=== PATIENT | male | born 1965 | race Caucasian/White ===

== ENCOUNTER → 2019-10-09 13:23 | Outpatient (CLI) | payer BC, SELFPAY ==
--- NOTE | ~2019-10-09 | CT_ITS ---
EXAMINATION: CT pelvis wo con EXAM DATE: 10/09/2019 13:37 INDICATION: Left lower quadrant pain. TECHNIQUE: Spiral CT pelvis wo con was performed without contrast. Axial, coronal and sagittal imag es were reviewed. The dose-length product (DLP) for this examination was 473.11 mGy-cm. The exposur e was tailored according to patient size (auto mA exposure control), and iterative reconstruction ( IR) was used as additional dose reduction technique. There is no prior study for comparison. FINDINGS: Normal appendix. No inguinal hernias. Prostate normal in size. Bladder is unremarkable. No pelvic lymphadenopathy. L5 pars are intact. There is mild lower lumbar disc disease. IMPRESSION: Normal CT pelvis exam. Reviewed, dictated and finalized at location B. ICE WRITER ADVISOR IMPRESSION: Normal CT pelvis exam.
== END ==
PROVIDERS: PCP Family Medicine; Visit Provider Surgery
DX: R10.32 Left lower quadrant pain (principal)
CPT/HCPCS: 72192

== ENCOUNTER → 2021-04-10 14:20 | Outpatient (CLI) | payer BC, SELFPAY ==
--- NOTE | ~2021-04-10 | XR_ITS ---
XR lumbar spine 6V w bending DATE: 04/10/2021 14:46 INDICATION: Low back pain, right sciatica TECHNIQUE: Standing AP, lateral neutral, flexion and extension views. Coned lateral lumbosacral view. Bilateral oblique views. COMPARISON: None FINDINGS: There is mild dextro scoliosis of the thoracolumbar spine. No fracture, bone destruction, spondylolysis or spondylolisthesis is detected. The lumbar and lumbosa cral interspaces are relatively preserved. No instability on flexion or extension is detected. The sacroiliac joints are normal. Prominent amount of fecal material in the colon. IMPRESSION: Mild dextroscoliosis Reviewed, dictated and finalized at location B. IMPRESSION: Mild dextroscoliosis
== END ==
PROVIDERS: PCP Family Medicine; Visit Provider Nurse Practitioner Family
DX: M54.41 Lumbago with sciatica, right side (principal)
CPT/HCPCS: 72114

== ENCOUNTER → 2021-05-10 15:06 | Outpatient (CLI) | payer BC, SELFPAY ==
--- NOTE | ~2021-05-10 | MR_ITS ---
EXAMINATION: MR lumbar spine wo con DATE: 05/10/2021 16:14 INDICATION: Lumbago and sciatica, right-sided. TECHNIQUE: Magnetic resonance imaging (MRI) of the lumbar spine was performed without intravenous con trast. Sequences included sagittal T2-weighted FSE, sagittal T2-weighted FS FSE, sagittal T1-weighted FSE, and axial T2-weighted FSE. COMPARISON: Lumbar spine radiograph 04/10/2021 FINDINGS: There is 3 degrees levocurvature of lumbar spine. Vertebral body heights are normal. There is mildly decreased disc height at L3-L4, L4-L5, and L5-S1. The distal spinal cord signal intensity i s normal. The conus medullaris is at L1. The following disc levels are specifically discussed: L1-L2: The disc does not extend beyond the endplate margin. There is mild bilateral facet joint osteo arthritis. There is no neural foraminal stenosis. There is no central canal stenosis. L2-L3: There is a left subarticular and foraminal zone extrusion. There is moderate bilateral facet j oint osteoarthritis. There is mild right and moderate left neural foraminal stenosis. There is mild c entral canal stenosis. L3-L4: The disc is bulging and has an annular fissure. There is severe bilateral facet joint osteoart hritis. There is mild bilateral neural foraminal stenosis. There is mild central canal stenosis. L4-L5: The disc is bulging and has an annular fissure. There is severe bilateral facet joint osteoart hritis. There is mild bilateral neural foraminal stenosis. There is mild central canal stenosis. L5-S1: The disc is bulging and has an annular fissure. There is mild bilateral facet joint osteoarthr itis. There is mild bilateral neural foraminal stenosis. There is mild central canal stenosis. IMPRESSION: 1. Moderate lumbar spondylosis. Reviewed, dictated and finalized at location A.
== END ==
PROVIDERS: PCP Family Medicine; Visit Provider Nurse Practitioner Family
DX: M47.817 Spondylosis without myelopathy or radiculopathy, lumbosacral region (principal); M48.07 Spinal stenosis, lumbosacral region
CPT/HCPCS: 72148

== ENCOUNTER 2021-10-19 00:19 | Day surgery (SDC) | payer BC, SELFPAY ==
[2021-10-09 09:40] VITALS: BMI 24.3
--- NOTE | 2021-10-18 13:15 | PM.HPGS ---
History of Present Illness History of Present Illness Consent: Risks, benefits, and alternatives have been discussed and questions answered. Patient agrees to proceed with procedure. Chief complaint: hx of colon polyps Narrative: Brett Mcghee is a 55 year old male referred for colon cancer screening. He had 2 adenomatous polyps removed about 5 years ago Review of Systems Review of Systems: All systems reviewed & are unremarkable except as noted in HPI and below PMFSH Past Medical History Medical History Abnormal MRI, lumbar spine Back strain BMI 25.0-25.9,adult Colon polyp Dislocated elbow Surgical History Surgical History H/O inguinal hernia repair History of vasectomy Family History Family History Grandparent Family history of premature coronary heart disease Hypertension Family history of malignant neoplasm Diabetes mellitus Family history of heart disease in male family member before age 55 Family history of cardiovascular disease Family history of coronary artery disease Father Hypertension Family history of coronary artery disease Family history of heart disease in male family member before age 55 Family history of cardiovascular disease Mother No problems noted. Sibling No problems noted. 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 Gender identity (if verbalized by the patient): Male Spiritual care concerns: No Meds Home Medications and Allergies Home Medications Medication Instructions Recorded Confirmed Type zolpidem 5 mg tablet 5 mg PO .q hs #30 tablet 08/01/21 10/09/21 Rx Adults Multivitamin 1 cap PO DAILY 10/09/21 10/09/21 History Allergies Allergy/AdvReac Type Severity Reaction Status Date / Time No Known Allergies Allergy Verified 10/19/21 09:13 Exam Const: General: alert Orientation/consciousness: patient oriented x3 Resp: Auscultation: clear to auscultation bilaterally Cardio: Rhythm: regular rhythm GI: GI Palp: Yes Soft to palpation and No Tenderness to palpation present (GI) Neuro: General: patient oriented x3 Assessment and Plan Assessment and plan (1) Colon cancer screening: Code(s): Z12.11 - Encounter for screening for malignant neoplasm of colon Status: Acute Assessment and Plan: Colonoscopy with possible biopsy or polypectomy or cautery or injection of substances.
[2021-10-19 09:14] VITALS: BP 126/76; PULSE 50; RESP 16; TEMP 36.8; O2SAT 100
[2021-10-19] MEDS: LACTATED RINGERS 1,000 ML 150 ML IV CONT (09:33)
--- NOTE | 2021-10-19 10:24 | WPDANESEPPF ---
Anes - Initial Pre Proc Eval Procedure: Operation Date: 10/19/21 10:30 Proposed Procedures p Screening Colonoscopy - Timmy Naik MD Date/Time: 10/19/21 10:24 Surgeon: Timmy Naik MD Pre Op Diagnosis: hx of colon polyps Patient Data Age: 55 Gender: M Height: 1.78 m Weight: 74.6 kg Last Vital Signs Temp 98.2 F 10/19/21 09:14 Pulse 50 L 10/19/21 09:14 Resp 16 10/19/21 09:14 BP 126/76 10/19/21 09:14 Pulse Ox 100 10/19/21 09:14 Allergies Allergy/AdvReac Type Severity Reaction Status Date / Time No Known Allergies Allergy Verified 10/19/21 09:13 Home Medications Medication Instructions Recorded Confirmed Type zolpidem 5 mg tablet 5 mg PO .q hs #30 tablet 08/01/21 10/09/21 Rx Adults Multivitamin 1 cap PO DAILY 10/09/21 10/09/21 History Patient hx anesthesia problems: none Family hx anesthesia problems: none Results Review: All pre-operative results and documents have been reviewed as part of the pre-operative evaluation. [facility] Past Medical History Medical History Abnormal MRI, lumbar spine Back strain BMI 25.0-25.9,adult Colon polyp Dislocated elbow Surgical History Surgical History H/O inguinal hernia repair History of vasectomy Family History Family History Grandparent Family history of premature coronary heart disease Hypertension Family history of malignant neoplasm Diabetes mellitus Family history of heart disease in male family member before age 55 Family history of cardiovascular disease Family history of coronary artery disease Father Hypertension Family history of coronary artery disease Family history of heart disease in male family member before age 55 Family history of cardiovascular disease Mother No problems noted. Sibling No problems noted. 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 Informed Consent: The patient's anesthetic plan and its attendant risks and benefits were discussed with the patient/family/POA. Questions were solicited and answers provided to the satisfaction of the patient/family/POA.
[2021-10-19 10:52] VITALS: BP 104/65; PULSE 53; RESP 28; O2SAT 100
[2021-10-19 11:02] VITALS: BP 103/70; PULSE 52; RESP 17; O2SAT 100
[2021-10-19 11:12] VITALS: BP 115/76; PULSE 46; RESP 17; O2SAT 100
== END 2021-10-19 11:18 | disposition home or self-care (01) ==
PROVIDERS: PCP Family Medicine; Visit Provider Internal Medicine Gastroenterology
PROC: 0DJD8ZZ Inspection of Lower Intestinal Tract, Via Natural or Artificial Opening Endoscopic (ICD-10-PCS; CPT 45378; principal; 2021-10-19 10:30)
DX: Z12.11 Encounter for screening for malignant neoplasm of colon (principal); K63.5 Polyp of colon
CPT/HCPCS: 45385; 88305; J2704; J7120

== ENCOUNTER → 2022-01-11 12:21 | Outpatient (CLI) | payer BC, SELFPAY ==
--- NOTE | ~2022-01-11 | XR_ITS ---
XR thoracic spine 2V DATE: 01/11/2022 13:03 INDICATION: Thoracic back pain TECHNIQUE: AP, lateral, swimmer views COMPARISON: None FINDINGS: There is mild dextroscoliosis of the thoracic spine. No fracture or dislocation or bone destruction. The thoracic pedicles are intact. Vertebral heights a re preserved. Thoracic interspaces are preserved. There is minimal degenerative lipping of some of th e thoracic vertebrae. No paraspinal soft tissue thickening. IMPRESSION: Mild dextro scoliosis and minimal degenerative change Reviewed, dictated and finalized at location A.
--- NOTE | ~2022-01-11 | XR_ITS ---
XR_CERV2-3V_CR DATE: 01/11/2022 13:03 INDICATION: Neck pain TECHNIQUE: AP, open-mouth, lateral standing views COMPARISON: None FINDINGS: C1 and C2 are normally aligned and the odontoid process is intact. No fracture or dislocation or locked facet. No prevertebral soft tissue swelling. There is mild degenerative disease at C3-4. There is moderately prominent degenerative disc disease at C5-6 and moderate loss of height at C6-7 There is uncovertebral joint spurring at C5-6. IMPRESSION: Degenerative disc disease, most prominent at C5-6 Reviewed, dictated and finalized at Location A. Reviewed, dictated and finalized at location A.
--- NOTE | ~2022-01-11 | XR_ITS ---
EXAMINATION: XR chest 2V DATE: 01/11/2022 13:03 INDICATION: Shortness of breath. TECHNIQUE: Frontal and lateral views of the chest were obtained on 3 radiographs. COMPARISON: CT abdomen and pelvis 08/11/2018 FINDINGS: The chest demonstrates clear lungs without pneumonia, pleural effusion, or pneumothorax. Th e heart size is normal. IMPRESSION: 1. No acute cardiopulmonary disease. Reviewed, dictated and finalized at location A.
== END ==
PROVIDERS: PCP Family Medicine; Visit Provider Nurse Practitioner Family
DX: M54.6 Pain in thoracic spine (principal); R06.02 Shortness of breath; M50.322 Other cervical disc degeneration at C5-C6 level
CPT/HCPCS: 71046; 72040; 72070

== ENCOUNTER 2022-03-28 21:17 | Emergency (ER) | payer BC, SELFPAY ==
[2022-03-28 21:27] VITALS: BP 119/89; PULSE 50; RESP 18; TEMP 36.5; O2SAT 99
--- NOTE | 2022-03-28 22:01 | ED.GENADULT ---
HPI - General Adult General Chief complaint: Skin/Abscess/Foreign Body Stated complaint: laceration on top of head Time Seen by Provider: 03/28/22 21:52 History of Present Illness HPI narrative: Patient 56-year-old gentleman who presents the emergency department with chief complaint of head injury. Patient reports he was mowing the lawn and hit his head against a branch. Patient reports he is approximately 6 cm laceration to his scalp reports he is unsure of his last tetanus status. The patient states he was little dazed afterwards but is subsequently back to normal reports little bit of a mild headache. The patient denies being on blood thinners denies focal neurological deficit. Related Data Home Medications Medication Instructions Recorded Confirmed Adults Multivitamin 1 cap PO DAILY 10/09/21 01/11/22 Allergies Allergy/AdvReac Type Severity Reaction Status Date / Time No Known Allergies Allergy Verified 03/28/22 21:31 Review of Systems Review of Systems: A 10 system review of systems was completed on the patient and is negative except for what is stated in the HPI. Nursing and ancillary documentation was reviewed. [facility] Past Medical History Medical History Abnormal MRI, lumbar spine Back strain BMI 25.0-25.9,adult Colon polyp Dislocated elbow Surgical History Surgical History H/O inguinal hernia repair History of vasectomy Family History Family History Grandparent Family history of premature coronary heart disease Hypertension Family history of malignant neoplasm Diabetes mellitus Family history of heart disease in male family member before age 55 Family history of cardiovascular disease Family history of coronary artery disease Father Hypertension Family history of coronary artery disease Family history of heart disease in male family member before age 55 Family history of cardiovascular disease Mother No problems noted. Sibling No problems noted. 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 HEAD: Normocephalic, there is a sick centimeter laceration of the scalp. EYES: PERRLA and EOMI. ENT: Nares clear, no rhinorrhea or epistaxis. Mucous membranes moist. NECK: Supple. CHEST: Clear to auscultation. No respiratory distress. HEART: Regular rate and rhythm. No murmur heard. Normal peripheral pulses. ABDOMEN: Soft, nontender, nondistended, normal active bowel sounds. EXTREMITIES: Normal range of motion. No edema. SKIN: Warm, dry, no rash. NEURO: No focal deficits. Alert and oriented x3. PSYCH: Normal mood and affect. Course Vital Signs Vital signs: Vital Signs Temperature 36.5 C 03/28/22 21:27 Pulse Rate 50 L 03/28/22 21:27 Respiratory Rate 18 03/28/22 21:27 Blood Pressure 119/89 03/28/22 21:27 Pulse Oximetry 99 03/28/22 21:27 Oxygen Delivery Room Air 03/28/22 21:27 Temperature 36.5 C 03/28/22 21:27 Pulse Rate 68 03/28/22 22:36 Respiratory Rate 18 03/28/22 22:36 Blood Pressure 135/76 03/28/22 22:36 Pulse Oximetry 98 03/28/22 22:36 Oxygen Delivery Room Air 03/28/22 21:27 Procedures Laceration Laceration 1: Date: 03/28/22 Time: 22:02 Size (cm): 6 Description: linear Depth: simple, single layer Local Anesthetic: none ====== Skin Level ====== Skin layer closed with:
[2022-03-28] MEDS: TETANUS,DIPHTHERIA,AC PERTUSSIS ADULT (0.5 ML) BOOSTRIX IM (22:17)
[2022-03-28 22:36] VITALS: BP 135/76; PULSE 68; RESP 18; O2SAT 98
== END 2022-03-28 22:37 | disposition home or self-care (01) ==
PROVIDERS: Emergency Provider Emergency Medicine; PCP Family Medicine
DX: S01.01XA Laceration without foreign body of scalp, initial encounter (principal); Z23 Encounter for immunization; W22.8XXA Striking against or struck by other objects, initial encounter
CPT/HCPCS: 12002; 90471; 90715; 99282

== ENCOUNTER → 2022-05-15 11:08 | Outpatient (CLI) | payer BC, SELFPAY ==
--- NOTE | ~2022-05-15 | XR_ITS ---
EXAMINATION:XR cervical spine 4-5V DATE: 05/15/2022 11:37 INDICATION: Neck pain TECHNIQUE: AP, lateral in neutral, flexion, extension, and odontoid views of the cervical spine are p rovided. COMPARISON: 01/11/2022 FINDINGS: Bone alignment is normal. There is no laxity with flexion or extension. The odontoid is int act. No fracture is identified. There is unchanged moderate loss of intervertebral disc space height at C5-6. The vertebral body heights are maintained. Small degenerative osteophytes project from the a nterior endplates of multiple vertebral bodies. There is moderate facet and uncovertebral joint osteo arthritis at C5-6. Prevertebral soft tissues are normal. IMPRESSION: 1. Unchanged moderate cervical spondylosis at C5-6 without acute findings. No laxity. Reviewed, dictated and finalized at location B. IMPRESSION: 1. Unchanged moderate cervical spondylosis at C5-6 without acute findings. No l axity.
--- NOTE | ~2022-05-15 | XR_ITS ---
EXAM: XR lumbar spine min 4V DATE: 05/15/2022 11:37 HISTORY: Low back pain . COMPARISON: MR lumbar spine 05/10/2021 and x-ray lumbar spine 02/08/2021. FINDINGS: Mild lumbar scoliosis. 5 nonrib-bearing lumbar-type vertebral bodies. Pedicles intact. Norm al vertebral body alignment. No significant change in alignment in flexion or extension. Vertebral ivanna dy heights preserved. Mild disc space narrowing at L3-L4 through L5-S1. Lower lumbar facet hypertroph y and sclerosis. No fracture or dislocation. IMPRESSION: No dynamic listhesis. Mild degenerative disc disease and moderate facet arthropathy in th e lower lumbar spine. Reviewed, dictated and finalized at location K. IMPRESSION: No dynamic listhesis. Mild degenerative disc disease and moderate f acet arthropathy in the lower lumbar spine.
== END ==
PROVIDERS: PCP Family Medicine; Visit Provider Neurological Surgery
DX: M47.813 Spondylosis without myelopathy or radiculopathy, cervicothoracic region (principal); M47.817 Spondylosis without myelopathy or radiculopathy, lumbosacral region
CPT/HCPCS: 72050; 72110

== ENCOUNTER → 2022-07-19 08:40 | Outpatient (CLI) | payer BC, SELFPAY ==
--- NOTE | ~2022-07-19 | MR_ITS ---
EXAMINATION: MR lumbar spine wo con DATE: 07/19/2022 09:12 INDICATION: Low back pain. Lumbar radicular pain. TECHNIQUE: Magnetic resonance imaging (MRI) of the lumbar spine was performed without intravenous con trast. Sequences included sagittal T2-weighted FSE, sagittal T2-weighted FS FSE, sagittal T1-weighted FSE, and axial T2-weighted FSE. COMPARISON: Lumbar spine MRI 05/10/2021 FINDINGS: There is 4 degrees dextrocurvature of thoracolumbar spine. Vertebral body heights are jakob l. There is mildly decreased disc height at L3-L4, L4-L5, and L5-S1. The distal spinal cord signal in tensity is normal. The conus medullaris is at L1. The following disc levels are specifically discusse d: L1-L2: The disc does not extend beyond the endplate margin. There is mild bilateral facet joint osteo arthritis. There is no neural foraminal stenosis. There is no central canal stenosis. L2-L3: The disc is bulging and has an annular fissure. There is mild bilateral facet joint osteoarthr itis. There is mild bilateral neural foraminal stenosis. There is no central canal stenosis. L3-L4: The disc is bulging and has an annular fissure. There is severe bilateral facet joint osteoart hritis. There is mild bilateral neural foraminal stenosis. There is mild central canal stenosis. L4-L5: The disc is bulging and has an annular fissure. There is severe bilateral facet joint osteoart hritis. There is mild bilateral neural foraminal stenosis. There is mild central canal stenosis. L5-S1: The disc is bulging and has an annular fissure. There is mild bilateral facet joint osteoarthr itis. There is mild bilateral neural foraminal stenosis. There is mild central canal stenosis. IMPRESSION: 1. Mild lumbar spondylosis with interval improvement at L2-L3. Reviewed, dictated and finalized at location A. OR STORE MANAGER
== END ==
PROVIDERS: PCP Family Medicine; Visit Provider Nurse Practitioner Family
DX: M47.26 Other spondylosis with radiculopathy, lumbar region (principal)
CPT/HCPCS: 72148

== ENCOUNTER 2023-02-05 13:57 | Outpatient (RCR) | payer BC, SELFPAY ==
--- NOTE | 2023-02-05 15:08 | STOPEVDC ---
Assessment and note entered by Renee Langford, SUPERVISOR WEBBING Thank you for referring Brett Mcghee to [facility].? An evaluation has been completed. No further treatment is needed. Evaluation Information Assessment Status Evaluation Diagnosis Dysarthria Onset Reports he has noticed the issues in the past 6-8 months Subjective Information Patient reports that he recently has noticed in the past 6-8 months, he feels that he is having a hard time putting together sentences. He feels that he has imprecision in the /s/ sound and that he slurs words a lot, and that he has to work hard to get it out. He is expressing some concern about his own speech. Patient reports that when he listens to his own voicemail or voice memos, he does not feel like it sounds like himself. Patient stated that he has made his aware; she indicated at that time that she could perceive no difference. Reported Pain Level Pain Score 0: Self Report Assessment ST Clinical Summary SPEECH AND LANGUAGE EVALUATION This patieny was seen for a speech and language evaluation at his request as he reported that he feels that he is having occasional difficulty putting thoughts into words and he feels that his /s/ sound is not as precise as it used to be. He was presented with a variety of auditory comprehension, verbal expression, oral motor and speech tasks, and immediate memory tasks. All skills were judged to be within normal limits including production of the /s/ sound and therefore no further Speech Therapy is indicated. Plan of Care ST Services Indicated No
== END 2023-02-06 15:09 | disposition home or self-care (01) ==
LOC: ANHST 13:57
PROVIDERS: PCP Family Medicine; Visit Provider Nurse Practitioner Family
DX: R47.1 Dysarthria and anarthria (principal)
CPT/HCPCS: 92523

== ENCOUNTER 2023-09-04 10:51 | Emergency (ER) | payer BC, SELFPAY ==
[2023-09-04 10:58] VITALS: BP 119/75; PULSE 58; RESP 16; TEMP 36.7; O2SAT 100
[2023-09-04 11:00] VITALS: BP 119/75; PULSE 58; RESP 16; TEMP 36.7; O2SAT 100
--- NOTE | 2023-09-04 11:11 | ED.URI ---
HPI - URI/Sore Throat General Chief Complaint: Upper Respiratory Infection Stated Complaint: COUGH/RUNNY NOSE/TIGHT CHEST/HEADACHE Source: patient and RN notes reviewed Mode of arrival: ambulatory Limitations: no limitations History of Present Illness HPI Narrative: 57-year-old male presented for complaint of sinus congestion and pressure, fatigue, sore throat and cough intermittently for a few months. Patient taken negative COVID test at home today. He denies shortness of breath, wheezing, chest pain or palpitations, nausea, vomiting, diarrhea, fevers or chills. Not taking anything [id number] for symptoms. MD elicited complaint: cough Related Data Home Medications Medication Instructions Recorded Confirmed multivitamin 1 tablet PO .QD 09/20/22 09/04/23 Allergies Allergy/AdvReac Type Severity Reaction Status Date / Time No Known Allergies Allergy Verified 01/22/23 09:26 Review of Systems Review of Systems: CONSTITUTIONAL: Endorses malaise, denies chills, sweats, fever EYES: Denies visual changes, redness, or discharge ENT: Reports rhinorrhea, congestion, sinus pain, sore throat CARDIOVASCULAR: Denies chest pain, palpitations, edema RESPIRATORY: Reports cough, post nasal drainage. Denies dyspnea GASTROINTESTINAL: Denies abdominal pain, nausea, vomiting, diarrhea SKIN: Denies rash or itching MUSCULOSKELETAL: Denies myalgia NEUROLOGIC: Denies headache PMFSH Past Medical History Medical History Abnormal MRI, lumbar spine Back strain BMI 24.0-24.9, adult BMI 25.0-25.9,adult Chest congestion Colon polyp Dislocated elbow Surgical History Surgical History H/O cataract extraction H/O inguinal hernia repair History of vasectomy Family History Family History Grandparent Family history of premature coronary heart disease Hypertension Family history of malignant neoplasm Diabetes mellitus Family history of heart disease in male family member before age 55 Family history of cardiovascular disease Family history of coronary artery disease Father Hypertension Family history of coronary artery disease Family history of heart disease in male family member before age 55 Family history of cardiovascular disease Mother Arthritis Sibling No problems noted. 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 TM pearly salazar with normal light reflex bilaterally; no tragal tenderness. Oropharynx erythematous without exudate, hard palate with circular ulcer approx 3mm diameter reports tender; no drooling, no hoarseness, no trismus, uvula midline. No tripod positioning, muffled voice, soft palate or pharyngeal wall bulging NECK: Supple. No lymphadenopathy CHEST: Clear to auscultation, breath sounds equal. No wheezing, rhonchi, rales, or stridor. No respiratory distress, speaks in full sentences. HEART: Regular rate and rhythm. No murmur heard. SKIN: Warm, dry, no rash. NEURO: Alert and orient
== END 2023-09-04 11:25 | disposition home or self-care (01) ==
PROVIDERS: Emergency Provider Nurse Practitioner Family; PCP Family Medicine
DX: J06.9 Acute upper respiratory infection, unspecified (principal)
CPT/HCPCS: 99213; G0463

== ENCOUNTER → 2023-10-21 10:15 | Outpatient (CLI) | payer BC, SELFPAY ==
--- NOTE | ~2023-10-21 | CT_ITS ---
EXAMINATION: CT brain wo con DATE: 10/21/2023 10:27 INDICATION: Headache, dysarthria, anarthria TECHNIQUE: Computed tomography (CT) of the head was performed without intravenous contrast. The mA wa s adjusted according to patient size. Iterative reconstruction technique was employed. Exam dose: 59 9.57 mGy-cm total exam DLP. COMPARISON: None FINDINGS: Intracranial cerebral atherosclerotic calcifications. No intracranial mass lesion or hemorrhage or cerebrovascular accident, midline shift or mass effect i s evident. Normal ventricular size. No subdural or epidural hematoma. The mastoid air cells are well-developed and aerated bilaterally. There is patchy soft tissue thickening of the paranasal sinuses bilaterally. No fracture or bone destruction of the cranial vault. IMPRESSION: Cerebral atherosclerosis; no acute intracranial finding Patchy bilateral paranasal sinus disease Reviewed, dictated and finalized at Location A. Reviewed, dictated and finalized at location B. DENTIAL THERAPIST
== END ==
PROVIDERS: PCP Nurse Practitioner Family; Visit Provider Nurse Practitioner Family
DX: R51.9 Headache, unspecified (principal); I67.2 Cerebral atherosclerosis
CPT/HCPCS: 70450

== ENCOUNTER → 2023-11-09 07:37 | Outpatient (CLI) | payer BC, SELFPAY ==
--- NOTE | ~2023-11-09 | MR_ITS ---
EXAMINATION: MR cervical spine wo con DATE: 11/09/2023 08:21 INDICATION: Neck pain. Cervical radicular pain. TECHNIQUE: Magnetic resonance imaging (MRI) of the cervical spine was performed without intravenous c ontrast. Sequences included sagittal T2-weighted FSE, sagittal T2-weighted FS FSE, sagittal T1-weight ed FSE, axial MERGE, and axial T2-weighted FSE. COMPARISON: Cervical spine radiographs 05/15/22 FINDINGS: Bone alignment is normal. Vertebral body heights are normal. There is mildly decreased disc height at C3-C4 and moderately decreased disc height at C5-C6. The spinal cord signal intensity is n ormal. The following disc levels are specifically discussed: C2-C3: The disc does not extend beyond the endplate margin. There is no uncovertebral joint osteoarth ritis. There is mild bilateral facet joint osteoarthritis. There is no neural foraminal stenosis. The re is no central canal stenosis. C3-C4: The disc is bulging and has an annular fissure. There is mild left uncovertebral joint osteoar thritis. There is mild bilateral facet joint osteoarthritis. There is mild bilateral neural foraminal stenosis. There is mild central canal stenosis. C4-C5: The disc does not extend beyond the endplate margin. There is mild bilateral uncovertebral lorraine nt osteoarthritis. There is mild bilateral facet joint osteoarthritis. There is mild bilateral neural foraminal stenosis. There is no central canal stenosis. C5-C6: The disc is bulging. There is severe bilateral uncovertebral joint osteoarthritis. There is se zev bilateral facet joint osteoarthritis. There is moderate right and mild left neural foraminal leslie nosis. There is mild central canal stenosis. C6-C7: The disc does not extend beyond the endplate margin. There is no uncovertebral joint osteoarth ritis. There is mild bilateral facet joint osteoarthritis. There is no neural foraminal stenosis. The re is no central canal stenosis. C7-T1: The disc does not extend beyond the endplate margin. There is no uncovertebral joint osteoarth ritis. There is mild bilateral facet joint osteoarthritis. There is no neural foraminal stenosis. The re is no central canal stenosis. IMPRESSION: 1. Moderate cervical spondylosis. Reviewed, dictated and finalized at location A. HEONETTE MANAGER
--- NOTE | ~2023-11-09 | XR_ITS ---
EXAM: XR thoracic spine 3V DATE: 11/09/2023 09:12 HISTORY: thoracic back pain . COMPARISON: 01/11/2022. FINDINGS: Mild spinal asymmetry. Vertebral body alignment intact. Vertebral body heights preserved. M ild multilevel degenerative disc disease. No traumatic malalignment or fracture. Visualized lung pare nchyma is clear. IMPRESSION: Mild multilevel degenerative disc disease. Reviewed, dictated and finalized at location K. DIAL TEACHER
== END ==
PROVIDERS: PCP Nurse Practitioner Family; Visit Provider Nurse Practitioner Family
DX: M54.12 Radiculopathy, cervical region (principal); M51.34 Other intervertebral disc degeneration, thoracic region; M43.02 Spondylolysis, cervical region
CPT/HCPCS: 72072; 72141

== ENCOUNTER 2024-08-25 09:25 | Outpatient (CLI) | payer BC, SELFPAY ==
--- NOTE | 2024-08-25 09:50 | ECHO_ITS ---
Patient Info Name: Brett Mcghee Age: 58 years : 1965 Gender: Male Ht: 70 in Wt: 170 lbs BSA: 1.96 m2 HR: 41 bpm BP: 129 / 73 mmHg Technical Quality: Good Exam Date: 08/25/2024 9:56 AM Exam Location: Echo Lab Patient Status: Outpatient Admit Date: 08/25/2024 Staff Ordering Physician: Mark Anthony Alanis DO Wool Hat Sanding Machine Operator: Femi Torres RDCS Attending Provider: Mark Anthony Alanis DO Referring Physician: Zeke REAL; Exam Type: CA echo doppler color flow Study Info Indications - OTHER VENTRICULAR TACHYCARDIA Complete two-dimensional, color flow and Doppler transthoracic echocardiogram is performed. Summary 1. Complete two-dimensional, color flow and Doppler transthoracic echocardiogram is performed. 2. Left ventricular chamber dimension is normal. 3. Left ventricular systolic function is normal, estimated at 60-65%. 4. The left ventricular diastolic function is normal. 5. E/e' 6 is not elevated. 6. There is trace aortic valve regurgitation. 7. There is mild mitral valve regurgitation. 8. No pulmonary hypertension, estimated pulmonary arterial systolic pressure is 29 mmHg. Left Ventricle E/e' 6 is not elevated. Left ventricular chamber dimension is normal. Left ventricular systolic function is normal, estimated at 60-65%. The left ventricular diastolic function is normal. Right Ventricle Right ventricular systolic function is normal and with normal TAPSE 1.8 cm. Right ventricular chamber dimension is normal. Left Atria Left atrial chamber dimension is normal. Right Atria Right atrial chamber dimension is normal. Aortic Valve The aortic valve is trileaflet. There is no aortic valve stenosis. There is trace aortic valve regurgitation. Pulmonic Valve There is no pulmonic regurgitation. Mitral Valve There is no mitral valve stenosis. There is mild mitral valve regurgitation. Tricuspid Valve There is no tricuspid valve regurgitation. No pulmonary hypertension, estimated pulmonary arterial systolic pressure is 29 mmHg. Pericardium/Pleural There is no pericardial effusion. Inferior Vena Cava Normal inferior vena cava with >50% collapse upon inspiration consistent with normal right atrial pressure, 5 mmHg. Aorta The aortic root size at the sinus of Valsalva is normal. Left Ventricular Outflow Tract Name Value Normal LVOT 2D LVOT Diameter 2.0 cm LVOT Doppler LVOT Peak Gradient 4 mmHg LVOT Mean Gradient 2 mmHg LVOT VTI 26 cm LVOT VTI/AV VTI Ratio 0.9 LVOT Stroke Volume 84 ml LVOT CO 3.1 l/min LVOT CI 1.6 l/min/m2 Pulmonic Valve Name Value Normal RVOT Doppler RVOT Peak Gradient 3 mmHg PV Doppler PV Peak Gradient 3 mmHg Mitral Valve Name Value Normal MV Doppler MV Peak Gradient 2 mmHg MV Mean Gradient 0 mmHg MV Decel Mayes 516 cm/s2 MV PHT 39 ms MV Area (PHT) 5.6 cm2 4.0-5.0 MV Area (Cont Eq VTI) 2.7 cm2 MV Diastolic Function MV E Peak Velocity 70 cm/s MV A Peak Velocity 49 cm/s MV E/A 1.4 MV Decel Time 136 ms MV Annular TDI MV E/e' (Septal) 7.2 <=8.0 MV E/e' (Lateral) 5.6 <=8.0 MV E/e' (Average) 6.4 Tricuspid Valve Name Value Normal TV Regurgitation Doppler TR Peak Velocity 247 cm/s TR Peak Gradient 24 mmHg Estimated PAP/RSVP RA Pressure 5 mmHg <=5 PA Systolic Pressure 29 mmHg <36 RV Systolic Pressure 29 mmHg <36 Aorta Name Value Normal Ascending Aorta Ao Root Diameter (MM) 3.4 cm Ao Root Diam Index (MM) 1.7 cm/m2 Aortic Valve Name Value Normal AV Doppler AV Peak Velocity 105 cm/s AV Peak Gradient 4 mmHg AV Mean Gradient 2 mmHg AV VTI 28 cm AV Area (Cont Eq VTI) 3.0 cm2 >=3.0 AV Area (Cont Eq Tomer) 2.9 cm2 AV Regurgitation 2D LVOT Area 3.2 cm2 Ventricles Name Value Normal LV Dimensions 2D/MM IVS Diastolic Thickness (2D) 1.3 cm 0.6-1.0 LVID Diastole (2D) 5.0 cm 4.2-5.8 LVIW Diastolic Thickness (2D) 1.0 cm 0.6-1.0 LVID Systole (2D) 3.2 cm 2.5-4.0 LVOT Diameter 2.0 cm LV Mass (2D Cubed) 212.56 g 88.00-224.00 LV Mass Index (2D Cubed) 109 g/m2 49-115 Relative Wall Thickness (2D) 0.39 LV Fractional Shortening/Ejection Fraction 2D/MM LV Fractional Shortening (2D) 37 % 25-43 LV EF (2D Teicholz) 67 % 52-72 LV Diastolic Volume (4C MOD) 126 ml LV EF (4C MOD) 59 % LV Diastolic Volume (2C MOD) 102 ml LV EF (2C MOD) 73 % LV Diastolic Volume (BP MOD) 113 ml 62-150 LV Diastolic Volume Index (BP MOD) 58 ml/m2 34-74 LV Systolic Volume (BP MOD) 39 ml 21-61 LV Systolic Volume Index (BP MOD) 20 ml/m2 11-31 LV EF (BP MOD) 66 % 52-72 LV Diastolic Length (4C) 8.6 cm LV Systolic Length (4C) 6.9 cm LV Stroke Volume (4C MOD) 75 ml Atria Name Value Normal LA Dimensions LA Dimension (MM) 3.8 cm 3.0-4.1 LA Volume (4C A-L) 55 ml LA Volume (BP A-L) 44 ml RA Dimensions RA Area (4C) 16.3 cm2 <=18.0 Report Signatures
--- NOTE | 2024-08-25 09:51 | EST_ITS ---
Patient Info Name: Brett Mcghee Age: 58 years : 1965 Gender: Male Ht: 70 in Wt: 170 lbs BSA: 1.96 m2 HR: 36 bpm BP: 123 / 84 mmHg Exam Date: 08/25/2024 10:49 AM Exam Location: Echo Lab Patient Status: Outpatient Admit Date: 08/25/2024 Staff Ordering Physician: Mark Anthony Alanis DO Attending Provider: Mark Anthony Alanis DO Exercise Technologist: Jeannine Gordon RDCS Exercise Physician: Mark Anthony Alanis DO Exam Type: CA stress test treadmill Study Info Indications R00.0 - Tachycardia, unspecified A treadmill exercise stress test was performed. Summary 1. 1. Negative Fransico exercise stress test for ischemic ST changes by ECG criteria. 2. 2. Excellent functional capacity, achieving 14.9 METs of workload. 3. 3. Appropriate HR response to exercise. 4. 4. Appropriate HR recovery at 1 minute post exercise. 5. 5. No imaging with stress testing. 6. 6. Patient informed of the above results. Protocol: Fransico Stress ECG Details Stage: REST Duration (min): 2 min : 29 sec Speed (mph): 0.0 Grade (%): 0 HR (bpm): 38 SBP (mmHg): 123 DBP (mmHg): 84 METS: --- Stage: REST Duration (min): 8 min : 27 sec Speed (mph): 0.0 Grade (%): 0 HR (bpm): 48 SBP (mmHg): 123 DBP (mmHg): 84 METS: --- Stage: STAGE 1 Duration (min): 1 min : 0 sec Speed (mph): 1.7 Grade (%): 10 HR (bpm): 67 SBP (mmHg): 123 DBP (mmHg): 84 METS: --- Stage: STAGE 1 Duration (min): 2 min : 0 sec Speed (mph): 1.7 Grade (%): 10 HR (bpm): 64 SBP (mmHg): 123 DBP (mmHg): 84 METS: --- Stage: STAGE 1 Duration (min): 3 min : 0 sec Speed (mph): 1.7 Grade (%): 10 HR (bpm): 64 SBP (mmHg): 130 DBP (mmHg): 66 METS: --- Stage: STAGE 2 Duration (min): 1 min : 0 sec Speed (mph): 2.5 Grade (%): 12 HR (bpm): 76 SBP (mmHg): 130 DBP (mmHg): 66 METS: --- Stage: STAGE 2 Duration (min): 2 min : 0 sec Speed (mph): 2.5 Grade (%): 12 HR (bpm): 78 SBP (mmHg): 160 DBP (mmHg): 73 METS: --- Stage: STAGE 2 Duration (min): 3 min : 0 sec Speed (mph): 2.5 Grade (%): 12 HR (bpm): 75 SBP (mmHg): 160 DBP (mmHg): 73 METS: --- Stage: STAGE 3 Duration (min): 1 min : 0 sec Speed (mph): 3.4 Grade (%): 14 HR (bpm): 95 SBP (mmHg): 160 DBP (mmHg): 73 METS: --- Stage: STAGE 3 Duration (min): 2 min : 0 sec Speed (mph): 3.4 Grade (%): 14 HR (bpm): 86 SBP (mmHg): 160 DBP (mmHg): 73 METS: --- Stage: STAGE 3 Duration (min): 3 min : 0 sec Speed (mph): 3.4 Grade (%): 14 HR (bpm): 88 SBP (mmHg): 160 DBP (mmHg): 73 METS: --- Stage: STAGE 4 Duration (min): 1 min : 0 sec Speed (mph): 4.2 Grade (%): 16 HR (bpm): 100 SBP (mmHg): 160 DBP (mmHg): 73 METS: --- Stage: STAGE 4 Duration (min): 2 min : 0 sec Speed (mph): 4.2 Grade (%): 16 HR (bpm): 101 SBP (mmHg): 160 DBP (mmHg): 73 METS: --- Stage: STAGE 4 Duration (min): 3 min : 0 sec Speed (mph): 4.2 Grade (%): 16 HR (bpm): 103 SBP (mmHg): 158 DBP (mmHg): 70 METS: --- Stage: STAGE 5 Duration (min): 1 min : 0 sec Speed (mph): 5.0 Grade (%): 18 HR (bpm): 124 SBP (mmHg): 124 DBP (mmHg): 74 METS: --- Stage: STAGE 5 Duration (min): 2 min : 0 sec Speed (mph): 5.0 Grade (%): 18 HR (bpm): 136 SBP (mmHg): 124 DBP (mmHg): 74 METS: --- Stage: STAGE 5 Duration (min): 2 min : 5 sec Speed (mph): 5.0 Grade (%): 18 HR (bpm): 132 SBP (mmHg): 124 DBP (mmHg): 74 METS: --- Stage: RECOVERY Duration (min): 0 min : 55 sec Speed (mph): 0.0 Grade (%): 0 HR (bpm): 86 SBP (mmHg): 142 DBP (mmHg): 73 METS: --- Stage: RECOVERY Duration (min): 1 min : 54 sec Speed (mph): 0.0 Grade (%): 0 HR (bpm): 56 SBP (mmHg): 142 DBP (mmHg): 73 METS: --- Stage: RECOVERY Duration (min): 2 min : 54 sec Speed (mph): 0.0 Grade (%): 0 HR (bpm): 49 SBP (mmHg): 165 DBP (mmHg): 82 METS: --- Stage: RECOVERY Duration (min): 3 min : 54 sec Speed (mph): 0.0 Grade (%): 0 HR (bpm): 56 SBP (mmHg): 125 DBP (mmHg): 79 METS: --- Stage: RECOVERY Duration (min): 4 min : 18 sec Speed (mph): 0.0 Grade (%): 0 HR (bpm): 55 SBP (mmHg): 125 DBP (mmHg): 79 METS: --- Rest HR: 48 bpm Peak HR: 136 bpm Rest Sys BP: 123 mmHg Peak Sys BP: 165 mmHg Max Pred HR: 161 bpm % Max Pred HR: 84 % Target HR: 137 bpm Max RPP: 22,440 bpm*mmHg Albrecht Score: 6 Termination Reason: Reached target heart rate or workload Cardiac Symptoms: None Max ST Seg Deviation: -1.60 mm Total Time: 14 min : 5 sec Rest Hussein BP: 84 mmHg Peak Hussein BP: 82 mmHg Angina Score: None Total METS: 14.9 Resting ECG Sinus bradycardia. Stress ECG No ST changes. Arrhythmias None. Report Signatures
== END 2024-08-25 09:26 | disposition home or self-care (01) ==
LOC: ANHCARD 09:26
PROVIDERS: PCP Family Medicine; Visit Provider Internal Medicine Cardiovascular Disease
DX: I47.29 Other ventricular tachycardia (principal); I34.0 Nonrheumatic mitral (valve) insufficiency
CPT/HCPCS: 93017; 93306

== ENCOUNTER 2024-11-12 00:35 | Day surgery (SDC) | payer BC, SELFPAY ==
[2024-10-29 14:18] VITALS: BMI 24.4
--- OUTSIDE RECORDS SUMMARY | 2024-11-12 00:37 | XMS_ITS | Clinical Summary ---
Author Organization [facility] Address [address] [place] [address] Care Team Providers Care Facility Attendant Name Role Phone Unavailable Primary Care Provider Unavailabl e Social History Tobacco Use Types Packs/Day Years Used Date Smoking Tobacco: Never Assessed Sex and Gender Information Value Date Recorded Sex Assigned at Not on file Legal Sex Male 9:33 AM TEAM MANAGER Gender Identity Not on file Sexual Orientation Not on file Plan of Treatment Health Maintenance Due Date Last Done Comments Hepatitis C Virus (HCV) Screening 1965 TdaP Immunization 1965 Hepatitis B Immunization (1 of 3 - 19+ 3-dose series) 1983 Colonoscopy 2009 Colorectal Cancer Screening 2009 Cologuard 2014 Immunochemical Fecal Occult Blood 2014 Pneumococcal Immunization (5 0+ years) (1 of 1 - PCV) 2014 Zoster Immunization (1 of 2) 2014 PSA Discussion 2019 Influenza Immunization (#1) 2024 SARS-COV-2 Immunization ( season) 2024 Respiratory Syncytial Virus (RSV) Immunization (Adult) (1 - 1-dose 75+ series) 2039 Meningococcal Immunization (ACWY) Aged Out No longer eligible based on patient's age to complete this topic Pneumococcal Immunization Combined Aged Out No longer eligible based on patient's age to complete this topic Rotavirus Immunization Aged Out No lo nger eligible based on patient's age to complete this topic
--- OUTSIDE RECORDS SUMMARY | 2024-11-12 00:37 | XMS_ITS | Referral Summary ---
Author Organization [facility] Address [address] [address] Care Team Providers Care Refinery Operator Assistant Name Role Phone Moi Foster MD Primary Care Provider [phone] Source Comments [facility],non-owned Affiliates and Associated Physician Practices is amultiple site organization consisting of ambulatory clinics and hospital sitesin [place], [place], [place] and [place]. This disclosure is being madepursuant to the Care Everywhere program and may not contain all information available regarding this patient. Last updated 18.[facility] [employer] Medications * Be aware that medications may not be up to date on this document. Alwaysverify current medications with the patient. Medication Sig Dispensed Refills Start Date End Date Status pantoprazole EC (PROTONIX) 40 MG tablet 02/04/2016 Active Active Problems Problem Noted Date Diagnosed Date Other specified disorders of nose and nasal sinu ses 05/17/2015 Social History Tobacco Use Types Packs/Day Years Used Date Smoking Tobacco: Never Smokeless Tobacco: Never Alcohol Use Standard Drinks/Week Comments Yes 0 (1 standard drink = 0.6 oz pur e alcohol) Sex and Gender Information Value Date Recorded Sex Assigned at Not on file Gender Identity Not on file Sexual Orientation Not on file Last Filed Vital Signs Vital Sign Reading Time Taken Comments Blood Pressure 111/75 03/30/2016 11:37 AM CDT Pulse 44 03/30/2016 11:37 AM CDT Temperature 35.8 C (96.4 F) 09/21/2014 8:51 AM BELT MAKER Respiratory Rate 12 05/17/2015 8:44 AM CDT Oxygen Saturation 99% 03/30/2016 11:37 AM CDT Inhaled Oxygen Concentration - - Weight 81.6 kg (180 lb) 03/30/2016 8:20 AM CDT Height 177.8 cm (5' 10 ) 03/30/2016 8:20 AM CDT Body Mass Index 25.83 03/30/2016 8:20 AM CDT Plan of Treatment Not on file Care Teams Refinery Operator Assistant Relationship Specialty Start Date End Date Moi Foster MD [address] [place] [address] PCP - General 02/01/16
--- OUTSIDE RECORDS SUMMARY | 2024-11-12 00:37 | XMS_ITS | Encounter Summary ---
Author Organization [facility] Address [address] [facility] [place] [address] Care Team Providers Care Website Optimization Strategist Name Role Phone Moi Foster MD Primary Care Provider [phone] Encounter Details Date Type Department Care Team (Late st Contact Info) Description 07/18/2022 Lab Requisition [facility] [address] [place] [address] Harvinder Pereira MD [address] [place] [address] Social History Tobacco Use Types Packs/Day Years Used Date Smoking Tobacco: Never Smokeless Tobacco: Never Alcohol Use Standard Drinks/Week Comments Yes 0 (1 standard drink = 0.6 oz pur e alcohol) Sex and Gender Information Value Date Recorded Sex Assigned at Not on file Gender Identity Not on file Sexual Orientation Not on file documented as of this encounter Plan of Treatment Not on file documented as of this encounter Procedures Procedure Name Priority Date/Time Associated Diagnosis Comments DERMATOPATHOLOGY Routine 07/17/2022 12:0 0 AM MASTER PLUMBER documented in this encounter Results * DERMATOPATHOLOGY (07/17/2022 12:00 AM MASTER PLUMBER) Case Report Dermatopathology Report Case: [id number] Authorizing Provider: Harvinder Pereira MD Collected: 07/17/2022 12:00 AM Ordering Location: [facility] Received: 07/18/2022 01:09 PM Pathologist: Katheryn Coleman MD Specimens: A) - Skin, left side neck B) - Skin, left dorsal hand 2:04 PM [facility] Final Diagnosis Specimen A. SKIN, left side neck: BASAL CELL CARCINOMA, NODULAR TYPE (C44.41) Specimen B. 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 The specimen consists of a shave biopsy measuring [id number]. Jar 0. Specimen B: Received is one formalin filled container labeled with the patient's name and designated left dorsal hand. The specimen consists of a shave biopsy measuring [id number]. Jar 0. 2:04 PM [facility] Microscopic Description Specimen A. SKIN, left side neck: Within the dermis there are aggregates of basaloid cells with a high nuclear to cytoplasmic ratio and peripheral palisading. Specimen B. SKIN, left dorsal hand: The epidermis is acanthotic and shows full thickness disorderly maturation of keratinocytes, mitoses at different levels, and dyskeratotic cells. There is overlying parakeratosis and hyperkeratosis. 2:04 PM [facility] Disclaimer An external and internal positive and negative controls are appropriate for the histochemical, immunohistochemical and immunofluorescence stain(s) in this case (if any), except where stated explicitly. The performance characteristics of the stain(s) cited in this report were developed and its performance characteristic determined by the Dermatopathology Laboratory at [facility], directed by Dr. Hugo Mckeon. These tests need not be, and therefore are not, approved by the [place] Food and Drug Administration. The tests are used for clinical purposes. Billing Codes Specimen Charges Stain Charges 02772 [id number] 1 1 2 2:04 PM [facility] Embedded Images 2:04 PM [facility] Pathology/Cytology TISSUE SPECIMEN FROM SKIN / Unknown 07/17/2022 07/18/2022 1:09 PM MASTER PLUMBER Miscellaneous samples (specimen) TISSUE SPECIMEN FROM SKIN / Unknown 07/17/2022 07/18/2022 1:09 PM MASTER PLUMBER Harvinder Pereira MD LAB - PATHOLOGY/[facility]TO [facility] DERMATOPATHOLOGY LABORATORY [facility] - Department of Dermatology [facility] [address] [place] [address], [address] [phone] documented in this encounter Visit Diagnoses Not on filedocumented in this encounter Care Teams Website Optimization Strategist Relationship Specialty Start Date End Date Moi Foster MD [address] [place] [address] PCP - General 02/01/16 documented as of this encounter
--- OUTSIDE RECORDS SUMMARY | 2024-11-12 00:37 | XMS_ITS | Encounter Summary ---
Author Organization [facility] Address [address] [place] [address] Care Team Providers Care Nuclear Pharmacist Name Role Phone Moi Foster MD Primary Care Provider [phone] Encounter Details Date Type Department Care Team (Late st Contact Info) Description 09/24/2019 Lab Requisition [facility] DermPath Lab [address] [facility], [place] [address] Harvinder Pereira MD [address] [address] Social History Tobacco Use Types [...] Priority Date/Time Associated Diagnosis Comments DERMATOPATHOLOGY Routine 09/23/2019 12:0 0 AM TRANSITIONAL STUDIES INSTRUCTOR documented in this encounter Results * DERMATOPATHOLOGY (09/23/2019 12:00 AM TRANSITIONAL STUDIES INSTRUCTOR) Case Report Dermatopathology Report Case: [id number] Authorizing Provider: Harvinder Pereira MD Collected: 09/23/2019 12:00 AM Ordering Location: [facility] DermPath Lab Received: 09/24/2019 01:12 PM Pathologist: Ryan Mckeon MD Specimen: Skin, right mid anteromedial calf 0 12:09 PM TRANSITIONAL STUDIES INSTRUCTOR DERMATOPATHOLOGY LABORATORY Final Diagnosis Specimen A. SKIN, right mid anteromedial calf: BASAL CELL CARCINOMA, NODULAR TYPE (C44.712) 0 12:09 PM TRANSITIONAL STUDIES INSTRUCTOR DERMATOPATHOLOGY LABORATORY Clinical History R/O BCC,SCC. 0 12:09 PM TRANSITIONAL STUDIES INSTRUCTOR DERMATOPATHOLOGY LABORATORY Gross Description Specimen A: Received is one formalin filled container labeled with the patient's name and designated right mid anteromedial calf. The specimen consists of a shave biopsy measuring [id number]. Jar 0. 0 12:09 PM [facility] DERMATOPATHOLOGY LABORATORY Microscopic Description Specimen A. SKIN, right mid anteromedial calf: Within the dermis there are aggregates of basaloid cells with a high nuclear to cytoplasmic ratio and peripheral palisading. 0 12:09 PM TRANSITIONAL STUDIES INSTRUCTOR DERMATOPATHOLOGY LABORATORY Disclaimer An external and internal positive and negative controls are appropriate for the histochemical, immunohistochemical and immunofluorescence stain(s) in this case (if any), except where stated explicitly. The performance characteristics of the stain(s) cited in this report were developed and its performance characteristic determined by the Dermatopathology Laboratory at [facility], directed by Dr. Hugo Mckeon. These tests need not be, and therefore are not, approved by the [place] Food and Drug Administration. The tests are used for clinical purposes. Billing Codes Specimen Charges Stain Charges 17193 1 0 12:09 PM TRANSITIONAL STUDIES INSTRUCTOR DERMATOPATHOLOGY LABORATORY Embedded Images 0 12:09 PM TRANSITIONAL STUDIES INSTRUCTOR DERMATOPATHOLOGY LABORATORY Pathology/Cytolog y TISSUE SPECIMEN FROM SKIN / Unknown 09/23/2019 09/24/2019 1:12 PM [facility] Harvinder Pereira MD LAB - PATHOLOGY/CYTO LOGY ORDERABLES DERMATOPATHOLOGY LABORATORY [facility] - Department of Dermatology [address] [place] [address], 5th Floor Lab B [address] [phone] documented in this encounter Visit Diagnoses Not on filedocumented in this encounter Care Teams Nuclear Pharmacist Relationship Specialty Start Date End Date Moi Foster MD [address] [place] [address] PCP - General 02/01/16 documented as of this encounter
--- OUTSIDE RECORDS SUMMARY | 2024-11-12 00:37 | XMS_ITS | Clinical Summary ---
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 Ancillary Procedure [facility] [address] [phone] Siri Shine PA-C Fatty metamorphosis of liver 09/22/2024 External Device Data [facility] ABSTRACTION Provider, Abstract 09/04/2024 9:15 AM TRACK 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 Ancillary Procedure [address] [phone] Siri Shine PA-C LLQ abdominal pain from Last 3 Months Social History Tobacco Use Types Packs/Day Years Used Date Smoking Tobacco: Never Assessed Sex and Gender Information Value Date Recorded Sex Assigned at Not on file Legal Sex Male 6:22 PM 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 Gender Identity Not on file Sexual Orientation Not on file Plan of Treatment Health Maintenance Due Date Last Done Comments DTAP/TDAP/TD VACCINES (1 - Tdap) 1983 COLORECTAL SCREENING 2009 Colorectal Cancer Screening 2009 FIT-DNA Q 3 years 2009 FIT/FOBT Q 1 year 2009 Flex Sig/CT Colonography Q 5 years 2009 ZOSTER VACCINE (1 of 2) 2014 INFLUENZA VACCINE (#1) 2024 RSV VACCINE (60+ or ) (1 - 1-dose 75+ series) 2039 HEPATITIS B VACCINES Aged Out No long er eligible based on patient's age to complete this topic Procedures Procedure Name Priority Date/Time Associated Diagnosis Comments US ABDOMEN LIMITED Routine 09/24/2024 8: 28 AM TRACK 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 Fatty metamorphosis of liver CT ABDOMEN PELVIS W CONTRAST Routine 09/04/2024 9:46 AM TRACK 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 LLQ abdominal pain from Last 3 Months Results * US ABDOMEN LIMITED (09/24/2024 8:28 AM TRACK 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) Anatomical Region Laterality Modality Abdomen Ultrasound 09/24/2024 8:28 AM TRACK 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 Impressions 09/24/2024 8:41 AM TRACK 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 IMPRESSION: Subcentimeter gallbladder polyps. Narrative 09/24/2024 8:41 AM TRACK 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 EXAM: US ABDOMEN LIMITED STUDY DATE: 09/24/2024 8:28 AM CLINICAL INDICATION: Fatty metamorphosis of liver COMPARISON: none PROCEDURE: Grayscale and color Doppler sonographic images of the right upper abdomen are obtained. FINDINGS: Liver: Normal echogenicity. No focal lesions. There is normal hepatopedal flow in the portal vein. Gallbladder:Negative sonographic Worthington's sign. No gallstones. No gallbladder wall thickening or pericholecystic fluid. There are subcentimeter echogenic foci adherent to the gallbladder wall measuring 3.4 x 3.3 x 2.2 mm and 3.3 x 2.8 x 2.8 mm and are consistent with polyps. Biliary tract: Measures up to 3.5 mm, which is within normal limits. Aorta: Normal IVC: Normal Pancreas: Obscured by bowel gas. Right kidney: Measures 11.5 cm in length. Normal echogenicity. No renal calculi. No hydronephrosis. Procedure Note Laureen Aguirre MD - 09/24/2024 EXAM: US ABDOMEN LIMITED STUDY DATE: 09/24/2024 8:28 AM CLINICAL INDICATION: Fatty metamorphosis of liver COMPARISON: none PROCEDURE: Grayscale and color Doppler sonographic images of the right upper abdomen are obtained. FINDINGS: Liver: Normal echogenicity. No focal lesions. There is normal hepatopedal flow in the portal vein. Gallbladder:Negative sonographic Worthington's sign. No gallstones. No gallbladder wall thickening or pericholecystic fluid. There are subcentimeter echogenic foci adherent to the gallbladder wall measuring 3.4 x 3.3 x 2.2 mm and 3.3 x 2.8 x 2.8 mm and are consistent with polyps. Biliary tract: Measures up to 3.5 mm, which is within normal limits. Aorta: Normal IVC: Normal Pancreas: Obscured by bowel gas. Right kidney: Measures 11.5 cm in length. Normal echogenicity. No renal calculi. No hydronephrosis. IMPRESSION: Subcentimeter gallbladder polyps. us Siri Shine PA-C US ORDERABLES Final Resu lt * CT ABDOMEN PELVIS W CONTRAST (09/04/2024 9:46 AM TRACK 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) Anatomical Region Laterality Modality Abdomen Computed Tomogra phy 09/04/2024 9:47 AM TRACK 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 Impressions 09/04/2024 10:57 AM TRACK 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 IMPRESSION: Hepatomegaly with mild diffuse hepatic steatosis. Moderate constipation. No inguinal hernia. Narrative 09/04/2024 10:57 AM TRACK 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 EXAM: CT ABDOMEN PELVIS W CONTRAST DATE: 09/04/2024 9:50 AM HISTORY: LLQ abdominal pain. Possible recurrent inguinal hernia TECHNIQUE: Helically acquired images were obtained from hemidiaphragms to the pelvic floor following IV contrast. CONTRAST: IOPAMIDOL 61 % INTRAVENOUS SOLUTION (SINGLE USE VIAL) Given:100 mL COMPARISON: None. FINDINGS: The liver is mildly diffusely low in attenuation consistent with hepatic steatosis. There is hepatomegaly with liver measuring up to 21 cm. The spleen, gallbladder, adrenal glands, pancreas, kidneys, the abdominal aorta and the appendix are normal. There is moderate constipation. No abnormally dilated loops of large or small bowel are noted. There are a few shotty periaortic lymph nodes. No lymphadenopathy is seen. There is no inguinal hernia. There is a tiny dystrophic calcification centrally of the prostate gland. The prostate gland is not enlarged. The bladder and seminal vesicles are unremarkable. There is no ascites. Lung bases are clear. No osseous abnormalities are noted. Procedure Note Mary Sheppard MD - 09/04/2024 EXAM: CT ABDOMEN PELVIS W CONTRAST DATE: 09/04/2024 9:50 AM HISTORY: LLQ abdominal pain. Possible recurrent inguinal hernia TECHNIQUE: Helically acquired images were obtained from hemidiaphragms to the pelvic floor following IV contrast. CONTRAST: IOPAMIDOL 61 % INTRAVENOUS SOLUTION (SINGLE USE VIAL) Given:100 mL COMPARISON: None. FINDINGS: The liver is mildly diffusely low in attenuation consistent with hepatic steatosis. There is hepatomegaly with liver measuring up to 21 cm. The spleen, gallbladder, adrenal glands, pancreas, kidneys, the abdominal aorta and the appendix are normal. There is moderate constipation. No abnormally dilated loops of large or small bowel are noted. There are a few shotty periaortic lymph nodes. No lymphadenopathy is seen. There is no inguinal hernia. There is a tiny dystrophic calcification centrally of the prostate gland. The prostate gland is not enlarged. The bladder and seminal vesicles are unremarkable. There is no ascites. Lung bases are clear. No osseous abnormalities are noted. IMPRESSION: Hepatomegaly with mild diffuse hepatic steatosis. Moderate constipation. No inguinal hernia. us Siri Shine PA-C CT ORDERABLES Final Resu lt from Last 3 [place] [address] [facility]
--- OUTSIDE RECORDS SUMMARY | 2024-11-12 00:37 | XMS_ITS | Encounter Summary ---
Author Organization [facility] Address [address] [facility] [place] [address] Care Team Providers Care Block Breaker Name Role Phone Moi Foster MD Primary Care Provider [phone] Encounter Details Date Type Department Care Team (Late st Contact Info) Description 12/20/2017 Lab Requisition [facility] DermPath Lab [address] [facility] [place] [place] [address] Harvinder Pereira MD [address] [place] [address] Social History Tobacco Use Types [...] Priority Date/Time Associated Diagnosis Comments DERMATOPATHOLOGY Routine 12/19/2017 12:0 0 AM CDT documented in this encounter Results * DERMATOPATHOLOGY (12/19/2017 12:00 AM CDT) Case Report Dermatopathology Report Case: [id number] Authorizing Provider: Harvinder Pereira MD Collected: 12/19/2017 12:00 AM Pathologist: Selam Harris MD Received: 12/20/2017 11:26 AM Specimen: Skin, left lateral calf 11:24 AM CDT DERMATOPATHOLOGY LABORATORY Final Diagnosis Specimen A. SKIN, left lateral calf: SQUAMOUS CELL CARCINOMA, KERATOACANTHOMA TYPE (C44.729) PRESENT AT MARGIN 11:24 AM CDT DERMATOPATHOLOGY LABORATORY Clinical History R/O keratoacanthoma. Check margins. 11:24 AM CDT DERMATOPATHOLOGY LABORATORY Gross Description Specimen A: Received is one formalin filled container labeled with the patient's name and designated left lateral calf. The specimen consists of a curettage and desiccation biopsy measuring [id number]. The margin is inked green. The specimen is bisected and submitted in 1 cassette. Jar 0. 11:24 AM CDT DERMATOPATHOLOGY LABORATORY Microscopic Description Specimen A. SKIN, left lateral calf: Sections show an endo exophytic crateriform lesion with a keratotic plug, formed by confluent follicle-like structures with relatively large keratinocytes and neutrophilic abscesses. This lesion is present at the margin of the specimen. 11:24 AM CDT DERMATOPATHOLOGY LABORATORY Disclaimer An external and internal positive and negative controls are appropriate for the histochemical, immunohistochemical and immunofluorescence stain(s) in this case (if any), except where stated explicitly. The performance characteristics of the stain(s) cited in this report were developed and its performance characteristic determined by the Dermatopathology Laboratory at [facility]. These tests need not be, and therefore are not, approved by the [place] Food and Drug Administration. The tests are used for clinical purposes. Billing Codes Specimen Charges Stain Charges 11156 1 11:24 AM CDT DERMATOPATHOLOGY LABORATORY Embedded Images 11:24 AM CDT DERMATOPATHOLOGY LABORATORY Pathology/Cytolog y TISSUE SPECIMEN FROM SKIN / Unknown 12/19/2017 12/20/2017 11:26 AM CDT Harvinder Pereira MD LAB - PATHOLOGY/CYTO LOGY ORDERABLES DERMATOPATHOLOGY LABORATORY [facility] - Department of Dermatology [address] [facility], [place] 5th Floor Lab [address] [phone] documented in this encounter Visit Diagnoses Not on filedocumented in this encounter Care Teams Block Breaker Relationship Specialty Start Date End Date Moi Foster MD [address] [place] [address] PCP - General 02/01/16 documented as of this encounter
--- OUTSIDE RECORDS SUMMARY | 2024-11-12 00:37 | XMS_ITS | Patient Health Summary ---
Author Organization [facility] Address [address] [facility] [place] [address] Care Team Providers Care Rural Health Consultant Name Role Phone Moi Foster MD Primary Care Provider [phone] Note from [facility],non-owned Affiliates and Associated Physician Practices is amultiple site organization consisting of ambulatory clinics and hospital sitesin [place], [place], [place] and [place]. This disclosure is being madepursuant to the Care Everywhere program and may not contain all information available regarding this patient. Last updated 18.[facility] Medications * Be aware that medications may not be up to date on this document. Alwaysverify current medications with the patient. 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 Case Report Dermatopathology Report Case: [id number] Authorizing Provider: Harvinder Pereira MD Collected: 06/30/2024 12:00 AM Ordering Location: [facility] - Received: 07/01/2024 04:19 PM DermPath Lab Pathologist: Anabelle Coleman MD Specimen: Skin, left scapula 11:45 AM CDT DERMATOPATHOLOGY LABORATORY Final Diagnosis Specimen A. SKIN, left scapula: BASAL CELL CARCINOMA, SUPERFICIAL MULTIFOCAL (C44.619) 11:45 AM CDT DERMATOPATHOLOGY LABORATORY Clinical History R/O BCC. 11:45 AM CDT DERMATOPATHOLOGY LABORATORY Gross Description Specimen A: Received is one formalin filled container labeled with the patient's name and designated left scapula. The specimen consists of a curettage and desiccation biopsy measuring [id number] mm. Jar 0. 11:45 AM CDT DERMATOPATHOLOGY LABORATORY Microscopic Description Specimen A. SKIN, left scapula: Attached to the undersurface of the epidermis, there are small aggregates of basaloid cells with a high nuclear to cytoplasmic ratio and peripheral palisading. 11:45 AM CDT DERMATOPATHOLOGY LABORATORY Disclaimer An external and internal positive and negative controls are appropriate for the histochemical, immunohistochemical and immunofluorescence stain(s) in this case (if any), except where stated explicitly. The performance characteristics of the stain(s) cited in this report were developed and its performance characteristic determined by the Dermatopathology Laboratory at [facility], directed by Dr. Hugo Mckeon. These tests need not be, and therefore are not, approved by the [place] Food and Drug Administration. The tests are used for clinical purposes. Billing Codes Specimen Charges Stain Charges 48880 1 4 11:45 AM CDT DERMATOPATHOLOGY LABORATORY Embedded Images 11:45 AM CDT DERMATOPATHOLOGY LABORATORY Pathology/Cytolog y TISSUE SPECIMEN FROM SKIN / Unknown 06/30/2024 07/01/2024 4:19 PM CDT Harvinder Pereira MD LAB - PATHOLOGY/CYTO LOGY ORDERABLES DERMATOPATHOLOGY LABORATORY [facility] - Department of Dermatology [facility] [address] [place] [address], [address] [phone] Care Teams Rural Health Consultant Relationship Specialty Start Date End Date Moi Foster MD [address] [place] [address] PCP - General 02/01/16
--- OUTSIDE RECORDS SUMMARY | 2024-11-12 00:37 | XMS_ITS | Encounter Summary ---
Author Organization [facility] Address [address] [facility] [place] [address] Care Team Providers Care College Basketball Coach Name Role Phone Moi Foster MD Primary Care Provider [phone] Encounter Details Date Type Department Care Team (Late st Contact Info) Description 07/01/2024 Lab Requisition [facility] - DermPath Lab [address] [facility], [place] [address] Harvinder Pereira MD [address] [place] [address] Social History Tobacco Use Types [...] Priority Date/Time Associated Diagnosis Comments DERMATOPATHOLOGY Routine 06/30/2024 12:0 0 AM CDT documented in this encounter Results * DERMATOPATHOLOGY (06/30/2024 12:00 AM CDT) Case Report Dermatopathology Report Case: [id number] Authorizing Provider: Harvinder Pereira MD Collected: 06/30/2024 12:00 AM Ordering Location: [facility] - Received: 07/01/2024 04:19 PM DermPath Lab Pathologist: Anabelle Coleman MD Specimen: Skin, left scapula 11:45 AM T DERMATOPATHOLOGY LABORATORY Final Diagnosis Specimen A. SKIN, left scapula: BASAL CELL CARCINOMA, SUPERFICIAL MULTIFOCAL (C44.619) 11:45 AM T DERMATOPATHOLOGY LABORATORY Clinical History R/O BCC. 11:45 AM CDT DERMATOPATHOLOGY LABORATORY Gross Description Specimen A: Received is one formalin filled container labeled with the patient's name and designated left scapula. The specimen consists of a curettage and desiccation biopsy measuring 30p01m4 mm. Jar 0. 11:45 AM T DERMATOPATHOLOGY LABORATORY Microscopic Description Specimen A. SKIN, left scapula: Attached to the undersurface of the epidermis, there are small aggregates of basaloid cells with a high nuclear to cytoplasmic ratio and peripheral palisading. 11:45 AM T DERMATOPATHOLOGY LABORATORY Disclaimer An external and internal positive and negative controls are appropriate for the histochemical, immunohistochemical and immunofluorescence stain(s) in this case (if any), except where stated explicitly. The performance characteristics of the stain(s) cited in this report were developed and its performance characteristic determined by the Dermatopathology Laboratory at [facility], directed by Dr. Hugo Mckeon. These tests need not be, and therefore are not, approved by the [place] Food and Drug Administration. The tests are used for clinical purposes. Billing Codes Specimen Charges Stain Charges 68084 1 11:45 AM CDT DERMATOPATHOLOGY LABORATORY Embedded Images 11:45 AM T DERMATOPATHOLOGY LABORATORY Pathology/Cytolog y TISSUE SPECIMEN FROM SKIN / Unknown 06/30/2024 07/01/2024 4:19 PM CDT Harvinder Pereira MD LAB - PATHOLOGY/CYTO LOGY ORDERABLES DERMATOPATHOLOGY LABORATORY [facility] - Department of Dermatology [address], [address] [phone] documented in this encounter Visit Diagnoses Not on filedocumented in this encounter Care Teams College Basketball Coach Relationship Specialty Start Date End Date Moi Foster MD [address] [place] [address] PCP - General 02/01/16 documented as of this encounter
--- OUTSIDE RECORDS SUMMARY | 2024-11-12 00:37 | XMS_ITS | Clinical Summary ---
Author Organization [facility] Address [address] [facility] [place] [address] Care Team Providers Care Lawn Technician Name Role Phone Moi Foster MD Primary Care Provider [phone] Source Comments [facility],non-owned Affiliates and Associated Physician Practices is amultiple site organization consisting of ambulatory clinics and hospital sitesin [place], [place], [place] and [place]. This disclosure is being madepursuant to the Care Everywhere program and may not contain all information available regarding this patient. Last updated 18.[facility] Medications * Be aware that medications may not be up to date on this document. Alwaysverify current medications with the patient. 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 Respiratory Rate 12 05/17/2015 8:44 AM CDT Oxygen Saturation 99% 03/30/2016 11:37 AM CDT Inhaled Oxygen Concentration - - Weight 81.6 kg (180 lb) 03/30/2016 8:20 AM CDT Height 177.8 cm (5' 10 ) 03/30/2016 8:20 AM CDT Body Mass Index 25.83 03/30/2016 8:20 AM CDT Plan of Treatment Health Maintenance Due Date Last Done Comments COLOGUARD (AGES 45-75) - COL ON CA SCREENING 1964 COLON MONITORING 1964 COLONOSCOPY - COLON CA SCREENING 1964 CT COLONOGRAPHY - COLON CA SCREENING 1964 Colorectal Cancer Screening 1964 FIT - COLON CA SCREENING 1964 FLEX SIG - COLON CA SCREENING 1964 LIPID TESTING 1964 HIV SCREENING 1979 HEPATITIS C SCREENING 10/27/1982 DTAP/TDAP/TD VACCINES (1 - Tdap) 1983 PNEUMOCOCCAL VACCINE 50+ (1 of 1 - PCV) 2014 ZOSTER VACCINE (1 of 2) 2014 COVID-19 VACCINE ( - 2023-2 5 season) 2024 INFLUENZA VACCINE (#1) 2024 DEPRESSION SCREENING 09/09/2024 Respiratory Syncytial Virus (RSV) Vaccine Pt: or over 60 yrs (1 - 1-dose 75+ series) 2039 HEPATITIS B VACCINE Aged Out No longe r eligible based on patient's age to complete this topic HIB VACCINE Aged Out No longer eligi ble based on patient's age to complete this topic HPV VACCINE Aged Out No longer eligi ble based on patient's age to complete this topic MENINGOCOCCAL (Group B) VACCINE Aged Out No longer eligible based on patient's age to complete this topic MENINGOCOCCAL VACCINE Aged Out No kenney sandor eligible based on patient's age to complete this topic PNEUMOCOCCAL VACCINE Aged Out No long er eligible based on patient's age to complete this topic Care Teams Lawn Technician Relationship Specialty Start Date End Date Moi Foster MD [address] [place] [address] PCP - General 02/01/16
[2024-11-12 10:32] VITALS: BP 117/59; PULSE 43; RESP 20; TEMP 36.5; O2SAT 100
[2024-11-12] MEDS: LACTATED RINGERS 1,000 ML 150 ML IV CONT (10:38)
--- NOTE | 2024-11-12 10:39 | P.PNAN_ITS ---
Anes - Initial Pre Proc Eval Procedure: Operation Date: 11/12/24 13:00 Proposed Procedures p Esophagogastroduodenoscopy - Vineet Constantino MD Date/Time: 11/12/24 10:39 Surgeon: Vineet Constantino MD Pre Op Diagnosis: Dysphagia,Gerd Patient Data Age: 59 Gender: M Height: 1.78 m Weight: 78.1 kg Last Vital Signs Temp 36.5 C 11/12/24 10:32 Pulse 43 L 11/12/24 10:32 Resp 20 11/12/24 10:32 BP 117/59 L 11/12/24 10:32 Pulse Ox 100 11/12/24 10:32 O2 Del Method Room Air 11/12/24 10:32 Allergies Allergy/AdvReac Type Severity Reaction Status Date / Time No Known Allergies Allergy Verified 11/12/24 10:28 Home Medications ?Medication ?Instructions ?Recorded ?Confirmed ?Type multivitamin 1 tablet PO .QD 09/20/22 11/12/24 History meloxicam 15 mg tablet 15 mg PO DAILY PRN pain 08/26/24 10/29/24 History omeprazole 20 mg capsule,delayed 20 mg PO DAILY #30 caps 09/23/24 11/12/24 Rx release zolpidem 5 mg tablet (Ambien) 5 mg PO .q hs #30 tabs 10/27/24 11/12/24 Rx Patient hx anesthesia problems: none Family hx anesthesia problems: none Results Review: All pre-operative results and documents have been reviewed as part of the pre- operative evaluation. [facility] Past Medical History Medical History Sinusitis GERD (gastroesophageal reflux disease) Dysphagia Insufficient sleep syndrome Neck pain Bradycardia Word finding difficulty BMI 24.0-24.9, adult Chest congestion Colon polyp Abnormal MRI, lumbar spine BMI 25.0-25.9,adult Back strain Dislocated elbow Surgical History Surgical History H/O cataract extraction History of vasectomy H/O inguinal hernia repair Family History Family History Grandparent Family history of premature coronary heart disease Hypertension Family history of malignant neoplasm Diabetes mellitus Family history of heart disease in male family member before age 55 Family history of cardiovascular disease Family history of coronary artery disease Father Hypertension Family history of coronary artery disease Family history of heart disease in male family member before age 55 Family history of cardiovascular disease Mother Arthritis Sibling No problems noted. 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 Informed Consent: The patient's anesthetic plan and its attendant risks and benefits were discussed with the patient/family/POA. Questions were solicited and answers provided to the satisfaction of the patient/family/POA.
--- NOTE | 2024-11-12 11:05 | P.HP_ITS ---
History of Present Illness History of Present Illness Consent: Risks, benefits, and alternatives have been discussed and questions answered. Patient agrees to proceed with procedure. Chief complaint: Dysphagia,Gerd Narrative: Brett Mcghee is a 59 year old male here for first EGD, h/o nausea and sometimes difficulty swallowing at throat level Review of Systems Review of Systems: All systems reviewed & are unremarkable except as noted in HPI and below PMFSH Past Medical History Medical History Sinusitis GERD (gastroesophageal reflux disease) Dysphagia Insufficient sleep syndrome Neck pain Bradycardia Word finding difficulty BMI 24.0-24.9, adult Chest congestion Colon polyp Abnormal MRI, lumbar spine BMI 25.0-25.9,adult Back strain Dislocated elbow Surgical History Surgical History H/O cataract extraction History of vasectomy H/O inguinal hernia repair Family History Family History Grandparent Family history of premature coronary heart disease Hypertension Family history of malignant neoplasm Diabetes mellitus Family history of heart disease in male family member before age 55 Family history of cardiovascular disease Family history of coronary artery disease Father Hypertension Family history of coronary artery disease Family history of heart disease in male family member before age 55 Family history of cardiovascular disease Mother Arthritis Sibling No problems noted. 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 Gender identity (if verbalized by the patient): Male Spiritual care concerns: No Meds Home Medications and Allergies Home Medications ?Medication ?Instructions ?Recorded ?Confirmed ?Type multivitamin 1 tablet PO .QD 09/20/22 11/12/24 History meloxicam 15 mg tablet 15 mg PO DAILY PRN pain 08/26/24 10/29/24 History omeprazole 20 mg capsule,delayed 20 mg PO DAILY #30 caps 09/23/24 11/12/24 Rx release zolpidem 5 mg tablet (Ambien) 5 mg PO .q hs #30 tabs 10/27/24 11/12/24 Rx Allergies Allergy/AdvReac Type Severity Reaction Status Date / Time No Known Allergies Allergy Verified 11/12/24 10:28 Vital Signs Vital Signs - 24 hr 11/12/24 10:32 Temperature 97.7 F Pulse Rate 43 L Respiratory Rate 20 Blood Pressure 117/59 L Pulse Oximetry 100 Oxygen Delivery Room Air Exam Const: General: comfortable and no acute distress HENMT: Face/Nose/Sinus: Normal nares present Eyes: General: appearance normal, both eyes and all related structures Neck: Neck: no JVD Resp: Auscultation: clear to auscultation bilaterally Cardio: Rate: regular rate Rhythm: regular rhythm GI: Inspection: non-distended GI Palp: Yes Soft to palpation Skin: General skin exam: normal color Neuro: Speech: normal speech Extrem: General: normal to inspection Psych: Mental Status: mental status grossly normal Assessment and Plan Assessment and plan (1) Nausea: Code(s): R11.0 - Nausea Status: Acute (2) Dysphagia: Code(s): R13.10 - Dysphagia, unspecified Status: Acute Assessment and Plan: egd with bx omeprazole did not help
[2024-11-12 11:12] VITALS: BP 103/60; PULSE 48; RESP 20; O2SAT 96
[2024-11-12 11:22] VITALS: BP 102/63; PULSE 46; RESP 20; O2SAT 98
[2024-11-12 11:32] VITALS: BP 109/63; PULSE 46; RESP 20; O2SAT 98
== END 2024-11-12 11:42 | disposition home or self-care (01) ==
PROVIDERS: PCP Family Medicine; Referring Provider Nurse Practitioner Adult Health; Visit Provider Internal Medicine Gastroenterology
PROC: 0DJ08ZZ Inspection of Upper Intestinal Tract, Via Natural or Artificial Opening Endoscopic (ICD-10-PCS; CPT 43239; principal; 2024-11-12 13:00)
DX: R13.10 Dysphagia, unspecified (principal); R11.0 Nausea; K21.9 Gastro-esophageal reflux disease without esophagitis
CPT/HCPCS: 43239; 88305; J2704; J7120

== ENCOUNTER 2024-12-29 09:21 | Outpatient (CLI) | payer BC, SELFPAY ==
--- NOTE | ~2024-12-29 | XR_ITS ---
Clinical Indication: Shortness of breath PA and lateral views of the chest: Comparison: 01/11/2022 Findings: The lungs are clear, without evidence of focal consolidation or pleural effusion. Cardiome diastinal silhouette is within normal limits. Bones and soft tissues are unremarkable. Impression: Normal chest. Reviewed, dictated and finalized at location . Impression: Normal chest.
== END 2024-12-29 09:22 | disposition home or self-care (01) ==
PROVIDERS: PCP Family Medicine
DX: R06.02 Shortness of breath (principal)
CPT/HCPCS: 71046

== ENCOUNTER 2025-06-21 14:28 | Outpatient (CLI) | payer BC, SELFPAY ==
--- OUTSIDE RECORDS SUMMARY | 2025-06-21 15:32 | XMS_ITS | Encounter Summary ---
Author Organization [facility] Address [address] [place] [address] Care Team Providers Care Plow Shaker Name Role Phone Moi Foster MD Primary Care Provider [phone] Encounter Details Date Type Department Care Team (Late st Contact Info) Description 07/01/2024 Lab Requisition [facility] - DermPath Lab [address] [facility] [place] [id number] Harvinder Pereira MD [address] [place] [address] Social History Tobacco Use Types Packs/Day Years Used Date Smoking Tobacco: Never Smokeless Tobacco: Never Alcohol Use Standard Drinks/Week Comments Yes 0 (1 standard drink = 0.6 oz pur e alcohol) Sex and Gender Information Value Date Recorded Sex Assigned at Not on file Legal Sex Male 5:54 PM 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 Gender Identity Not on file Sexual Orientation Not on file documented as of this encounter Plan of Treatment Not on file documented as of this encounter Procedures Procedure Name Priority Date/Time Associated Diagnosis Comments DERMATOPATHOLOGY Routine 06/30/2024 12:0 0 AM CDT documented in this encounter Results * DERMATOPATHOLOGY (06/30/2024 12:00 AM CDT) Case Report Dermatopathology Report Case: [id number] Authorizing Provider: Harvinder Pereira MD Collected: 06/30/2024 12:00 AM Ordering Location: [facility] - Received: 07/01/2024 04:19 PM DermPath Lab Pathologist: Anabelle Coleman MD Specimen: Skin, left scapula 11:45 AM CDT DERMATOPATHOLOGY LABORATORY Final Diagnosis Specimen A. SKIN, left scapula: BASAL CELL CARCINOMA, SUPERFICIAL MULTIFOCAL (C44.619) 11:45 AM CDT DERMATOPATHOLOGY LABORATORY at 1145 CDT Clinical History R/O BCC. 11:45 AM CDT DERMATOPATHOLOGY LABORATORY Gross Description Specimen A: Received is one formalin filled container labeled with the patient's name and designated left scapula. The specimen consists of a curettage and desiccation biopsy measuring [id number]. Jar 0. 11:45 AM CDT DERMATOPATHOLOGY [...] characteristic determined by the Dermatopathology Laboratory at [facility], directed by Dr. Hugo Mckeon. These tests need not be, and therefore are not, approved by the [place] Food and Drug Administration. The tests are used for clinical purposes. Billing Codes Specimen Charges Stain Charges 80596 1 11:45 AM CDT DERMATOPATHOLOGY LABORATORY Embedded Images 11:45 AM CDT DERMATOPATHOLOGY LABORATORY Pathology/Cytolog y TISSUE SPECIMEN FROM SKIN / Unknown 06/30/2024 07/01/2024 4:19 PM CDT us Harvinder Pereira MD LAB - PATHOLOGY/CYTOLOGY ORD ERABLES Final Result DERMATOPATHOLOGY LABORATORY [facility] - Department of Derm[facility] [address] [place] [address], [address] [phone] documented in this encounter Visit Diagnoses Not on filedocumented in this encounter Care Teams Plow Shaker Relationship Specialty Start Date End Date Moi Foster MD [address] [place] [address] PCP - General 02/01/16 documented as of this encounter
--- OUTSIDE RECORDS SUMMARY | 2025-06-21 15:32 | XMS_ITS | Encounter Summary ---
Author Organization [facility] Address [address] [place] [address] Care Team Providers Care Bias Cutter Helper Name Role Phone Moi Foster MD Primary Care Provider [phone] Encounter Details Date Type Department Care Team (Late st Contact Info) Description 07/18/2022 Lab Requisition [facility] Care DermPath Lab [address] [facility] [place] [address] Harvinder Pereira MD [address] [place] [address] Social History Tobacco Use Types Packs/Day Years Used Date Smoking Tobacco: Never Smokeless Tobacco: Never Alcohol Use Standard Drinks/Week Comments Yes 0 (1 standard drink = 0.6 oz pur e alcohol) Sex and Gender Information Value Date Recorded Sex Assigned at Not on file Legal Sex Male 5:54 PM SOCIAL SECURITY ASSESSOR Gender Identity Not on file Sexual Orientation Not on file documented as of this encounter Plan of Treatment Not on file documented as of this encounter Procedures Procedure Name Priority Date/Time Associated Diagnosis Comments DERMATOPATHOLOGY Routine 07/17/2022 12:0 0 AM SOCIAL SECURITY ASSESSOR documented in this encounter Results * DERMATOPATHOLOGY (07/17/2022 12:00 AM SOCIAL SECURITY ASSESSOR) Case Report Dermatopathology Report Case: [id number] Authorizing Provider: Harvinder Pereira MD Collected: 07/17/2022 12:00 AM Ordering Location: [facility] DermPath Lab Received: 07/18/2022 01:09 PM Pathologist: Katheryn Coleman MD Specimens: A) - Skin, left side neck B) - Skin, left dorsal hand 2:04 PM [facility] DERMATOPATHOLOGY LABORATORY Final Diagnosis Specimen A. SKIN, left side neck: BASAL CELL CARCINOMA, NODULAR TYPE (C44.41) Specimen B. 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 The specimen consists of a shave biopsy measuring [id number]. Jar 0. Specimen B: Received is one formalin filled container labeled with the patient's name and designated left dorsal hand. The specimen consists of a shave biopsy measuring [id number]. Jar 0. 2:04 PM [facility] DERMATOPATHOLOGY LABORATORY Microscopic Description Specimen A. SKIN, left side neck: Within the dermis there are aggregates of basaloid cells with a high nuclear to cytoplasmic ratio and peripheral palisading. Specimen B. SKIN, left dorsal hand: The epidermis is acanthotic and shows full thickness disorderly maturation of keratinocytes, mitoses at different levels, and dyskeratotic cells. There is overlying parakeratosis and hyperkeratosis. 2 2:04 PM [facility] DERMATOPATHOLOGY LABORATORY Disclaimer An external and internal positive and negative controls are appropriate for the histochemical, immunohistochemical and immunofluorescence stain(s) in this case (if any), except where stated explicitly. The performance characteristics of the stain(s) cited in this report were developed and its performance characteristic determined by the Dermatopathology Laboratory at [facility], directed by Dr. Hugo Mckeon. These tests need not be, and therefore are not, approved by the [place] Food and Drug Administration. The tests are used for clinical purposes. Billing Codes Specimen Charges Stain Charges 83136 97157 1 1 2 2:04 PM SOCIAL SECURITY ASSESSOR DERMATOPATHOLOGY LABORATORY Embedded Images 2 2:04 PM SOCIAL SECURITY ASSESSOR DERMATOPATHOLOGY LABORATORY Pathology/Cytology TISSUE SPECIMEN FROM SKIN / Unknown 07/17/2022 07/18/2022 1:09 PM SOCIAL SECURITY ASSESSOR Miscellaneous samples (specimen) TISSUE SPECIMEN FROM SKIN / Unknown 07/17/2022 07/18/2022 1:09 PM SOCIAL SECURITY ASSESSOR Harvinder Pereira MD LAB - PATHOLOGY/CYTOLOGY ORD ERABLES Final Result DERMATOPATHOLOGY LABORATORY [facility] - Department of Dermatology [facility] [address] [place] [address], [address] [phone] documented in this encounter Visit Diagnoses Not on filedocumented in this encounter Care Teams Bias Cutter Helper Relationship Specialty Start Date End Date Moi Foster MD [address] [id number] PCP - General 02/01/16 documented as of this encounter
--- OUTSIDE RECORDS SUMMARY | 2025-06-21 15:32 | XMS_ITS | Encounter Summary ---
Author Organization [facility] Address [address] [place] [address] Care Team Providers Care Procurement Professional Name Role Phone Moi Foster MD Primary Care Provider [phone] Encounter Details Date Type Department Care Team (Late st Contact Info) Description 12/20/2017 Lab Requisition [facility] Care DermPath Lab [address] [facility] [place] [address] Harvinder Pereira MD [address] [place] [address] Social History Tobacco Use Types Packs/Day Years Used Date Smoking Tobacco: Never Smokeless Tobacco: Never Alcohol Use Standard Drinks/Week Comments Yes 0 (1 standard drink = 0.6 oz pur e alcohol) Sex and Gender Information Value Date Recorded Sex Assigned at Not on file Legal Sex Male 5:54 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 Gender Identity Not on file Sexual Orientation Not on file documented as of this encounter Plan of Treatment Not on file documented as of this encounter Procedures Procedure Name Priority Date/Time Associated Diagnosis Comments DERMATOPATHOLOGY Routine 12/19/2017 12:0 0 AM CDT documented in this encounter Results * DERMATOPATHOLOGY (12/19/2017 12:00 AM CDT) Case Report Dermatopathology Report Case: [id number] Authorizing Provider: Harvinder Pereira MD Collected: 12/19/2017 12:00 AM Pathologist: Selam Harris MD Received: 12/20/2017 11:26 AM Specimen: Skin, left lateral calf 11:24 AM CDT DERMATOPATHOLOGY LABORATORY Final Diagnosis Specimen A. SKIN, left lateral calf: SQUAMOUS CELL CARCINOMA, KERATOACANTHOMA TYPE (C44.729) PRESENT AT MARGIN 11:24 AM CDT DERMATOPATHOLOGY LABORATORY at 1124 CDT Clinical History R/O keratoacanthoma. Check margins. 11:24 AM CDT DERMATOPATHOLOGY LABORATORY Gross Description Specimen A: Received is one formalin filled container labeled with the patient's name and designated left lateral calf. The specimen consists of a curettage and desiccation biopsy measuring [id number]. The margin is inked green. The specimen [...] characteristic determined by the Dermatopathology Laboratory at [facility]. These tests need not be, and therefore are not, approved by the [place] Food and Drug Administration. The tests are used for clinical purposes. Billing Codes Specimen Charges Stain Charges 91893 1 11:24 AM CDT DERMATOPATHOLOGY LABORATORY Embedded Images 11:24 AM CDT DERMATOPATHOLOGY LABORATORY Pathology/Cytolog y TISSUE SPECIMEN FROM SKIN / Unknown 12/19/2017 12/20/2017 11:26 AM CDT Harvinder Pereira MD LAB - PATHOLOGY/CYTOLOGY ORD ERABLES Final Result DERMATOPATHOLOGY LABORATORY [facility] - Department of Dermatology [address] [facility], [address]th [place] [address], [facility] [phone] documented in this encounter Visit Diagnoses Not on filedocumented in this encounter Care Teams Procurement Professional Relationship Specialty Start Date End Date Moi Foster MD [address] [address] PCP - General 02/01/16 documented as of this encounter
--- OUTSIDE RECORDS SUMMARY | 2025-06-21 15:32 | XMS_ITS | Clinical Summary ---
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 Gender Identity Not on file Sexual Orientation Not on file Plan of Treatment Health Maintenance Due Date Last Done Comments Hepatitis C Virus (HCV) Screening 1965 TdaP Immunization 1964 Cologuard 2009 Colonoscopy 2009 Colorectal Cancer Screening 2009 Immunochemical Fecal Occult Blood 2009 Pneumococcal Immunization (5 0+ years) (1 of 1 - PCV) 2014 Zoster Immunization (1 of 2) 2014 Influenza Immunization (#1) 2025 SARS-COV-2 Immunization ( - season) 2025 Respiratory Syncytial Virus (RSV) Immunization (Adult) (1 - 1-dose 75+ series) 2039 Hepatitis B Immunization Aged Out No longer eligible based on patient's age to complete this topic Human Papillomavirus (HPV) Immunization Aged Out No longer eligible b ased on patient's age to complete this topic Meningococcal Immunization (ACWY) Aged Out No longer eligible based on patient's age to complete this topic Rotavirus Immunization Aged Out No lo nger eligible based on patient's age to complete this topic
--- OUTSIDE RECORDS SUMMARY | 2025-06-21 15:32 | XMS_ITS | Encounter Summary ---
Author Organization [facility] Address [address] [facility] [place] [address] Care Team Providers Care Laborer Beam House Name Role Phone Moi Foster MD Primary Care Provider [phone] Encounter Details Date Type Department Care Team (Late st Contact Info) Description 09/24/2019 Lab Requisition [facility] Care DermPath Lab [address] [facility] [place] [address] Harvinder Pereira MD [address] [place] [address] Social History Tobacco Use Types Packs/Day Years Used Date Smoking Tobacco: Never Smokeless Tobacco: Never Alcohol Use Standard Drinks/Week Comments Yes 0 (1 standard drink = 0.6 oz pur e alcohol) Sex and Gender Information Value Date Recorded Sex Assigned at Not on file Legal Sex Male 5:54 PM BAG LOADER Gender Identity Not on file Sexual Orientation Not on file documented as of this encounter Plan of Treatment Not on file documented as of this encounter Procedures Procedure Name Priority Date/Time Associated Diagnosis Comments DERMATOPATHOLOGY Routine 09/23/2019 12:0 0 AM BAG LOADER documented in this encounter Results * DERMATOPATHOLOGY (09/23/2019 12:00 AM BAG LOADER) Case Report Dermatopathology Report Case: [id number] Authorizing Provider: Harvinder Pereira MD Collected: 09/23/2019 12:00 AM Ordering Location: [facility] DermPath Lab Received: 09/24/2019 01:12 PM Pathologist: Ryan Mckeon MD Specimen: Skin, right mid anteromedial calf 0 12:09 PM [facility] DERMATOPATHOLOGY LABORATORY Final Diagnosis Specimen A. SKIN, right mid anteromedial calf: BASAL CELL CARCINOMA, NODULAR TYPE (C44.712) 0 12:09 PM [facility] DERMATOPATHOLOGY LABORATORY at 1208 BAG LOADER Clinical History R/O BCC,SCC. 0 12:09 PM [facility] DERMATOPATHOLOGY LABORATORY Gross Description Specimen A: Received is one formalin filled container labeled with the patient's name and designated right mid anteromedial calf. The specimen consists of a shave biopsy measuring [id number]. Jar 0. 0 12:09 PM [facility] DERMATOPATHOLOGY LABORATORY Microscopic Description Specimen A. SKIN, right mid anteromedial calf: Within the dermis there are aggregates of basaloid cells with a high nuclear to cytoplasmic ratio and peripheral palisading. 0 12:09 PM BAG LOADER DERMATOPATHOLOGY LABORATORY Disclaimer An external and internal positive and negative controls are appropriate for the histochemical, immunohistochemical and immunofluorescence stain(s) in this case (if any), except where stated explicitly. The performance characteristics of the stain(s) cited in this report were developed and its performance characteristic determined by the Dermatopathology Laboratory at [facility], directed by Dr. Hugo Mckeon. These tests need not be, and therefore are not, approved by the [place] Food and Drug Administration. The tests are used for clinical purposes. Billing Codes Specimen Charges Stain Charges 50122 1 0 12:09 PM [facility] DERMATOPATHOLOGY LABORATORY Embedded Images 0 12:09 PM [facility] DERMATOPATHOLOGY LABORATORY Pathology/Cytolog y TISSUE SPECIMEN FROM SKIN / Unknown 09/23/2019 09/24/2019 1:12 PM [facility] us Harvinder Pereira MD LAB - PATHOLOGY/CYTOLOGY ORD ERABLES Final Result DERMATOPATHOLOGY LABORATORY [facility] - Department of Dermatology [facility] [facility], 5th Floor Lab B [address] [phone] documented in this encounter Visit Diagnoses Not on filedocumented in this encounter Care Teams Laborer Beam House Relationship Specialty Start Date End Date Moi Foster MD [address] [place] [address] PCP - General 02/01/16 documented as of this encounter
--- OUTSIDE RECORDS SUMMARY | 2025-06-21 15:32 | XMS_ITS | Clinical Summary ---
Author Organization [facility] Address [id number] [place] [address] Care Team Providers Care Promotions Assistant Name Role Phone Unavailable Primary Care Provider Unavailabl e Encounters Date Type Department Care Team Description 04/28/2025 External Device Data STL ABSTRACTION Provider, Abstract from Last 3 Months Social History Tobacco Use Types Packs/Day Years Used Date Smoking Tobacco: Never Assessed Sex and Gender Information Value Date Recorded Sex Assigned at Not on file Legal Sex Male 6:22 PM RN EXAMINER Gender Identity Not on file Sexual Orientation Not on file Plan of Treatment Health Maintenance Due Date Last Done Comments DTAP/TDAP/TD VACCINES (1 - Tdap) 1983 COLORECTAL SCREENING 2009 Colorectal Cancer Screening 2009 FIT-DNA Q 3 years 2009 FIT/FOBT Q 1 year 2009 Flex Sig/CT Colonography Q 5 years 2009 ZOSTER VACCINE (1 of 2) 2014 INFLUENZA VACCINE (#1) 2025 RSV VACCINE (60+ or ) (1 - 1-dose 75+ series) 2039 HEPATITIS B VACCINES Aged Out No long er eligible based on patient's age to complete this topic Insurance [facility] BLUE ACCESS CHOICE [facility]
--- OUTSIDE RECORDS SUMMARY | 2025-06-21 15:32 | XMS_ITS | Clinical Summary ---
Author Organization [email or web address] Address [address] [place] [address] Care Team Providers Care Township Clerk Name Role Phone Moi Foster MD Primary Care Provider [phone] Source Comments [facility],non-owned Affiliates and Associated Physician Practices is amultiple site organization consisting of ambulatory clinics and hospital sitesin [place], [place], [place] and [place]. This disclosure is being madepursuant to the Care Everywhere program and may not contain all information available regarding this patient. Last updated 18.[email or web address] Medications * Be aware that medications may not be up to date on this document. Alwaysverify current medications with the patient. pantoprazole EC (PROTONIX) 40 MG tablet 02/04/2016 [...] on file Legal Sex Male 5:54 PM RELAY REPAIRER Gender Identity Not on file Sexual Orientation Not on file Last Filed Vital Signs Vital Sign Reading Time Taken Comments Blood Pressure 111/75 03/30/2016 11:37 AM CDT Pulse 44 03/30/2016 11:37 AM CDT Temperature 35.8 C (96.4 F) 09/21/2014 8:51 AM RELAY REPAIRER Respiratory Rate 12 05/17/2015 8:44 AM CDT Oxygen Saturation 99% 03/30/2016 11:37 AM CDT Inhaled Oxygen Concentration - - Weight 81.6 kg (180 lb) 03/30/2016 8:20 AM CDT Height 177.8 cm (5' 10) 03/30/2016 8:20 AM CDT Body Mass Index [...] 2014 ZOSTER VACCINE (1 of 2) 2014 DEPRESSION SCREENING 09/09/2024 COVID-19 VACCINE (1 - 2023-2 5 season) 2025 INFLUENZA VACCINE (#1) 2025 Respiratory Syncytial Virus (RSV) Vaccine Pt: or [...] to complete this topic MENINGOCOCCAL (Group B) VACC INE SHARED DECISION-MAKING Aged Out No longer eligibl e based on patient's age to complete this topic MENINGOCOCCAL GROUPS A/C/Y/W VACCINE Aged Out No longer eligible b ased on patient's age to complete this topic Insurance ANTHEM ANTHEM [facility] SELF PAY NO INSURANCE Member Subscriber Plan / Payer (Ef fective for All Dates) Name:Brett Chung Evert Member ID:Not on file Relation to Subscriber:Not on file Name:BRETT CHUNG Subscriber ID:Not on file (Home) Address: [address] [place] [address] Payer ID:Not on file Group ID:Not on file Type:Self Pay Address: [place], [place] Care Teams Township Clerk Relationship Specialty Start Date End Date Moi Foster MD [address] [place] [address] PCP - General 02/01/16
--- NOTE | 2025-06-22 08:08 | P.PCNPFT_ITS ---
PFT Procedure Performed PFT Procedure Performed Spirometry with Pre/Post Bronchodilator Plethysmography (Lung Vol) Diffusing Cap (DLCO) Flow Vol Loop PFT Interpretation This is a pulmonary function test with pre and post-bronchodilator spirometry, plethysmography and diffusing capacity. The test was performed and results interpreted in accordance with the 2019 and 2005 ATS/ERS Task Force guidelines respectively using the Global Lung Function Initiative-2012 reference equations. Patient demonstrated good effort and cooperation. Reproducibility criteria were met. The quality of the pre bronchodilator spirometry maneuver was Grade B and post bronchodilator spirometry maneuver was Grade B. Findings: Spirometry: There is a mid expiratory plateau or knee pattern in 3 of 3 pre bronchodilator efforts and 1 of 3 post bronchodilator efforts. The contour the inspiratory flow tracing is normal. The pre bronchodilator FVC is 4.73 L, 102% predicted. The pre bronchodilator FEV1 is 3.98 L, 111% predicted. The pre bronchodilator FEV1: FVC ratio is 84%. The post bronchodilator FVC is 4.69 L, representing a 1% decrease. The post bronchodilator FEV1 is 4.05 L, representing a 2% increase. The post bronchodilator FEV1: FVC ratio is 86%. Plethysmography: The total lung capacity is 6.78 L, 97% predicted. The functional residual capacity is 3.89 L, 106% predicted. The residual volume is 2.05 L, 91% predicted. Diffusing capacity: The diffusing capacity unadjusted for hemoglobin and carbo xyhemoglobin is 27.2, 96% predicted. The diffusing capacity adjusted for alveolar volume is 4.51, 106% predicted. Impression: There is a reproducible knee pattern of the expiratory flow tracing which can be a normal variant or pathologic and has been attributed to a choke point section of the bronchial tree. The normal variant is more common in younger female patients, decreases with age and is more pronounced in the post bronchodilator efforts. The pattern has also been described with kyphosis, kyphoscoliosis, central obstructing mass, and post lung transplantation. Otherwise, the spirometry is normal without evidence of an obstructive abnormality. There is no significant improvement after inhaling a single dose of albuterol. The lung volumes are normal. The diffusing capacity is normal. There are no prior studies for comparison
== END 2025-06-21 14:29 | disposition home or self-care (01) ==
LOC: ANHPFT 14:30
PROVIDERS: PCP Family Medicine; Visit Provider Nurse Practitioner Family
DX: R06.02 Shortness of breath (principal)
CPT/HCPCS: 94060; 94726; 94729

== ENCOUNTER 2025-07-07 07:40 | Outpatient (CLI) | payer BC, SELFPAY ==
--- NOTE | ~2025-07-07 | CT_ITS ---
Exam: CT chest without contrast Clinical History: [Shortness of breath ] Comparison: [ Chest x-ray 12/27/2024] Technique: Multiple axial CT images of the chest without with IV contrast. Sagittal and coronal reformatted images were obtained. FINDINGS: Lungs and pleura: [ Tracheobronchial tree is patent.] No pneumothorax. No pleural effusion. No pulmonary mass. No pulmonary nodules. Small opacities in the left lower lung. Mediastinum and pulmonary bryan: [ No mass or adenopathy.] 1.3 cm calcified right hilar lymph node. Axillary/intramammary and supraclavicular: [ No mass or adenopathy.] Heart and great vessels: [ Normal heart size.[ [ No pericardial effusion.] [ No aneurysm.] There are coronary artery calcifications. Chest Wall: [ Unremarkable.] Upper Abdomen: [ No significant findings.] Osseous structures: [ No acute fracture or destructive lesion.] [ Multilevel degenerative change in the visualized spine.] Additional findings: [ None of significance.] IMPRESSION: 1. Small opacities in the left lower lung. Differential includes atelectasis/scarring or infiltrates. Reviewed, dictated and finalized at location Q. IMPRESSION: 1. Small opacities in the left lower lung. Differential includes atelectasis/sc arring or infiltrates.
--- OUTSIDE RECORDS SUMMARY | 2025-07-07 07:43 | XMS_ITS | Encounter Summary ---
Author Organization [facility] Address [address] [facility] [place] [address] Care Team Providers Care Heavy Duty Custodian Name Role Phone Moi Foster MD Primary Care Provider [phone] Encounter Details Date Type Department Care Team (Late st Contact Info) Description 07/01/2024 Lab Requisition [facility] - DermPath Lab [address] [facility] [place] [id number] Harvinder Pereira MD [address] [place] [address] Social History Tobacco Use Types Packs/Day Years Used Date Smoking Tobacco: Never Smokeless Tobacco: Never Alcohol Use Standard Drinks/Week Comments Yes 0 (1 standard drink = 0.6 oz pur e alcohol) Sex and Gender Information Value Date Recorded Sex Assigned at Not on file Legal Sex Male 5:54 PM CARDIOLOGY NURSE Gender Identity Not on file Sexual Orientation Not on file documented as of this encounter Plan of Treatment Not on file documented as of this encounter Procedures Procedure Name Priority Date/Time Associated Diagnosis Comments DERMATOPATHOLOGY Routine 06/30/2024 12:0 0 AM CDT documented in this encounter Results * DERMATOPATHOLOGY (06/30/2024 12:00 AM CDT) Case Report Dermatopathology Report Case: [id number] Authorizing Provider: Harvinder Pereira MD Collected: 06/30/2024 12:00 AM Ordering Location: [facility] - Received: 07/01/2024 04:19 PM [...] of a curettage and desiccation biopsy measuring [id number] mm. Jar 0. 11:45 AM CDT DERMATOPATHOLOGY [...] characteristic determined by the Dermatopathology Laboratory at [facility], directed by Dr. Hugo Mckeon. These tests need not be, and therefore are not, approved by the [place] Food and Drug Administration. The tests are used for clinical purposes. Billing Codes Specimen Charges Stain Charges 73777 1 11:45 AM CDT DERMATOPATHOLOGY LABORATORY Embedded Images 11:45 AM CDT DERMATOPATHOLOGY LABORATORY Pathology/Cytolog y TISSUE SPECIMEN FROM SKIN / Unknown 06/30/2024 07/01/2024 4:19 PM CDT us Harvinder Pereira MD LAB - PATHOLOGY/CYTOLOGY ORD ERABLES Final Result DERMATOPATHOLOGY LABORATORY [facility] - Department of Dermatology [facility] [address] [place] [address], [address] [phone] documented in this encounter Visit Diagnoses Not on filedocumented in this encounter Care Teams Heavy Duty Custodian Relationship Specialty Start Date End Date Moi Foster MD [address] [place] [address] PCP - General 02/01/16 documented as of this encounter
--- OUTSIDE RECORDS SUMMARY | 2025-07-07 07:43 | XMS_ITS | Clinical Summary ---
Author Organization [facility] Address [address] [place] [address] Care Team Providers Care Delivery Engineer Name Role Phone Unavailable Primary Care Provider Unavailabl e Social History Tobacco Use Types Packs/Day Years Used Date Smoking Tobacco: Never Assessed Sex and Gender Information Value Date Recorded Sex Assigned at Not on file Legal Sex Male 9:33 AM ANALYST SALES Gender Identity Not on file Sexual Orientation [...]
--- OUTSIDE RECORDS SUMMARY | 2025-07-07 07:43 | XMS_ITS | Clinical Summary ---
Author Organization [facility] Address [address] [facility] [place] [address] Care Team Providers Care Furniture Designer Name Role Phone Mio Foster MD Primary Care Provider [phone] Source Comments [facility],non-owned Affiliates and Associated Physician Practices is amultiple site organization consisting of ambulatory clinics and hospital sitesin [place], [place], [place] and [place]. This disclosure is being madepursuant to the Care Everywhere program and may not contain all information available regarding this patient. Last updated 18.[facility] Medications * Be aware that medications may [...] on file Legal Sex Male 5:54 PM TREE DOCTOR Gender Identity Not on file Sexual Orientation Not on file Last Filed Vital Signs Vital Sign Reading Time Taken Comments Blood Pressure 111/75 03/30/2016 11:37 AM CDT Pulse 44 03/30/2016 11:37 AM CDT Temperature 35.8 C (96.4 F) 09/21/2014 8:51 AM TREE DOCTOR Respiratory Rate 12 05/17/2015 8:44 AM CDT [...] to complete this topic Insurance ANTHEM ANTHEM [facility] SELF PAY NO INSURANCE Member Subscriber Plan / Payer (Ef fective for All Dates) Name:Brett Chung Evert Member ID:Not on file Relation to Subscriber:Not on file Name:BRETT CHUNG Subscriber ID:Not on file (Home) Address: [address] [place] [address] Payer ID:Not on file Group ID:Not on file Type:Self Pay Address: [place], [place] Care Teams Furniture Designer Relationship Specialty Start Date End Date Moi Foster MD [address] [place] [address] PCP - General 02/01/16
--- OUTSIDE RECORDS SUMMARY | 2025-07-07 07:43 | XMS_ITS | Encounter Summary ---
Author Organization [facility] Address [address] [facility] [place] [address] Care Team Providers Care Airplane Designer Name Role Phone Moi Foster MD Primary Care Provider [phone] Encounter Details Date Type Department Care Team (Late st Contact Info) Description 09/24/2019 Lab Requisition [facility] Care DermPath Lab [address] [facility] [place] [address] Harvinder Pereira MD [address] [address] Social History Tobacco Use Types Packs/Day Years Used Date Smoking Tobacco: Never Smokeless Tobacco: Never Alcohol Use Standard Drinks/Week Comments Yes 0 (1 standard drink = 0.6 oz pur e alcohol) Sex and Gender Information Value Date Recorded Sex Assigned at Not on file Legal Sex Male 5:54 PM REFERRAL NURSE Gender Identity Not on file Sexual Orientation Not on file documented as of this encounter Plan of Treatment Not on file documented as of this encounter Procedures Procedure Name Priority Date/Time Associated Diagnosis Comments DERMATOPATHOLOGY Routine 09/23/2019 12:0 0 AM REFERRAL NURSE documented in this encounter Results * DERMATOPATHOLOGY (09/23/2019 12:00 AM REFERRAL NURSE) Case Report Dermatopathology Report Case: [id number] Authorizing Provider: Harvinder Pereira MD Collected: 09/23/2019 12:00 AM Ordering Location: [facility] DermPath Lab Received: 09/24/2019 01:12 PM Pathologist: Ryan Mckeon MD Specimen: Skin, right mid anteromedial calf 0 12:09 PM [facility] DERMATOPATHOLOGY LABORATORY Final Diagnosis Specimen A. SKIN, right mid anteromedial calf: BASAL CELL CARCINOMA, NODULAR TYPE (C44.712) 0 12:09 PM [facility] DERMATOPATHOLOGY LABORATORY at 1208 REFERRAL NURSE Clinical History R/O BCC,SCC. 0 12:09 PM [facility] DERMATOPATHOLOGY LABORATORY Gross Description Specimen A: Received is one formalin filled container labeled with the patient's name and designated right mid anteromedial calf. The specimen consists of a shave biopsy measuring [id number]. Jar 0. 0 12:09 PM [facility] DERMATOPATHOLOGY LABORATORY Microscopic Description Specimen A. SKIN, right mid anteromedial calf: Within the dermis there are aggregates of basaloid cells with a high nuclear to cytoplasmic ratio and peripheral palisading. 0 12:09 PM REFERRAL NURSE DERMATOPATHOLOGY LABORATORY Disclaimer An external and internal positive and negative controls are appropriate for the histochemical, immunohistochemical and immunofluorescence stain(s) in this case (if any), except where stated explicitly. The performance characteristics of the stain(s) cited in this report were developed and its performance characteristic determined by the Dermatopathology Laboratory at [facility], directed by Dr. Hugo Mckeon. These tests need not be, and therefore are not, approved by the [place] Food and Drug Administration. The tests are used for clinical purposes. Billing Codes Specimen Charges Stain Charges 62294 1 0 12:09 PM [facility] DERMATOPATHOLOGY LABORATORY Embedded Images 0 12:09 PM [facility] DERMATOPATHOLOGY LABORATORY Pathology/Cytolog y TISSUE SPECIMEN FROM SKIN / Unknown 09/23/2019 09/24/2019 1:12 PM [facility] us Harvinder Pereira MD LAB - PATHOLOGY/CYTOLOGY ORD ERABLES Final Result DERMATOPATHOLOGY LABORATORY [facility] - Department of Dermatology [facility] [facility], 5th Floor Lab B [address] [phone] documented in this encounter Visit Diagnoses Not on filedocumented in this encounter Care Teams Airplane Designer Relationship Specialty Start Date End Date Moi Foster MD [address] [place] [address] PCP - General 02/01/16 documented as of this encounter
--- OUTSIDE RECORDS SUMMARY | 2025-07-07 07:43 | XMS_ITS | Encounter Summary ---
Author Organization [facility] Address [address] [facility] [place] [address] Care Team Providers Care Automotive Electrical Helper Name Role Phone Moi Foster MD Primary Care Provider [phone] Encounter Details Date Type Department Care Team (Late st Contact Info) Description 12/20/2017 Lab Requisition [facility] Care DermPath Lab [address] [facility] [place] [address] Harvinder Pereira MD [address] [place] [address] Social History Tobacco Use Types Packs/Day Years Used Date Smoking Tobacco: Never Smokeless Tobacco: Never Alcohol Use Standard Drinks/Week Comments Yes 0 (1 standard drink = 0.6 oz pur e alcohol) Sex and Gender Information Value Date Recorded Sex Assigned at Not on file Legal Sex Male 5:54 PM UTILITY DRIVER Gender Identity Not on file Sexual Orientation Not on file documented as of this encounter Plan of Treatment Not on file documented as of this encounter Procedures Procedure Name Priority Date/Time Associated Diagnosis Comments DERMATOPATHOLOGY Routine 12/19/2017 12:0 0 AM CDT documented in this encounter Results * DERMATOPATHOLOGY (12/19/2017 12:00 AM CDT) Case Report Dermatopathology Report Case: [id number] Authorizing Provider: Harvinder Pereira MD Collected: 12/19/2017 [...] of a curettage and desiccation biopsy measuring [id number]. The margin is inked green. The specimen [...] characteristic determined by the Dermatopathology Laboratory at [facility]. These tests need not be, and therefore are not, approved by the [place] Food and Drug Administration. The tests are used for clinical purposes. Billing Codes Specimen Charges Stain Charges 11576 1 11:24 AM CDT DERMATOPATHOLOGY LABORATORY Embedded Images 11:24 AM CDT DERMATOPATHOLOGY LABORATORY Pathology/Cytolog y TISSUE SPECIMEN FROM SKIN / Unknown 12/19/2017 12/20/2017 11:26 AM CDT Harvinder Pereira MD LAB - PATHOLOGY/CYTOLOGY ORD ERABLES Final Result DERMATOPATHOLOGY LABORATORY [facility] - Department of Dermatology [address] [facility], 5th [place] [address], [facility] [phone] documented in this encounter Visit Diagnoses Not on filedocumented in this encounter Care Teams Automotive Electrical Helper Relationship Specialty Start Date End Date Moi Foster MD [address] [place] [address] PCP - General 02/01/16 documented as of this encounter
--- OUTSIDE RECORDS SUMMARY | 2025-07-07 07:43 | XMS_ITS | Clinical Summary ---
Author Organization [facility] Address [address] [place] [address] Care Team Providers Care Procurement Analyst Name Role Phone Unavailable Primary Care Provider Unavailabl e Encounters Date Type Department Care Team Description 04/28/2025 External Device Data [facility] ABSTRACTION Provider, Abstract from Last 3 Months Social History Tobacco Use Types Packs/Day Years Used Date Smoking Tobacco: Never Assessed Sex and Gender Information Value Date Recorded Sex Assigned at Not on file Legal Sex Male 6:22 PM PULMONARY CARE NURSE Gender Identity Not on file Sexual [...] patient's age to complete this topic Insurance [facility] BLUE ACCESS CHOICE [facility]
== END 2025-07-07 07:41 | disposition home or self-care (01) ==
PROVIDERS: PCP Family Medicine; Visit Provider Nurse Practitioner Family
DX: R06.02 Shortness of breath (principal); R05.9 Cough, unspecified; R94.2 Abnormal results of pulmonary function studies; R91.8 Other nonspecific abnormal finding of lung field
CPT/HCPCS: 71250

== ENCOUNTER 2025-08-13 02:13 | Day surgery (SDC) | payer BC, SELFPAY ==
[2025-08-04 14:32] VITALS: BMI 24.6
--- NOTE | 2025-08-04 14:36 | PC.NURSE ---
[facility] has started construction of its new state of the art ER which will open Spring 2026. With this, we anticipate parking may be a challenge for some our surgical patients and families. Parking spaces are limited but are available for all Surgical, obstetrics, and ER patients sharing this lot. If you arrive and find you are having a hard time finding a parking space, please note that we understand the challenges, please drive around the hospital and park near Hospital Entrance 1. When you enter this entrance, you can ask a volunteer to direct or take you back to the surgical waiting area to check in. We appreciate everyone?s understanding of these expected challenges while we build for your future. Report to the Outpatient Waiting Room, entrance under the green pavilion located off [address], at time _1000_ on date 08/13/25_. Planned Procedure Time: _1200.? Time changes happen often and if your time is changed the preop area will call you the afternoon before. - You and your visitor will be asked to self-screen and do not enter if you have any COVID symptoms. Please call surgeon if you need to reschedule. - A mask is optional within the hospital at this time. Patients may have clear liquids (water, carbonated beverages, clear teas, apple juice) until 3 hours prior to surgery with a maximum of 20 ounces. - No food from midnight until time of surgery and no smoking, or chewing tobacco (or any form of nicotine). No chewing gum, candy or mints. Take only the following medications with a SIP of water on the morning of surgery: _NONE DO NOT STOP ANY OF YOUR OTHER PRESCRIPTION MEDICATIONS PRIOR TO SURGERY EXCEPT THE FOLLOWING Hold all vitamins and supplements for 3 days per anesthesiologist. Medications to discontinue per physician Date to take last dose Please no make-up, nail fijian, hairspray, perfume, deodorant, or body powder the day of surgery.? No jewelry (including any body piercings) or valuables the day of surgery, leave them at home.? Please take a shower or bath the night before, or the morning of, surgery with an antibacterial soap.? Wear comfortable, loose fitting clothing.? Children are encouraged to wear pajamas. - Jewelry must be removed prior to entering the operating room.? Rings and piercings that are not removed may be cut off. - The hospital will not accept responsibility for valuables.? - Please leave all valuables, including medications, at home the day of surgery. If you are going home after surgery, a licensed powder truck driver must drive you home.? - NO public transportation without another adult if you receive anesthesia. - We recommend that an adult stay with you for 24 hours following discharge. - We also recommend that you do not drive, make important decision, drink alcoholic beverages, or take any drugs that were not prescribed by your health care provider for at least 24 hours after your discharge time. For Pediatric surgeries, we recommend two adults accompany the child home. Follow any additional instructions given to you from your surgeon. Telephone instructions given to __PATIENT _and asked if any additional questions and then verbalized understanding. Patient advised to call surgeon office or pre surgery nurse liaison [phone] if any additional questions.
[2025-08-13] VITALS (7 sets, daily range): BP systolic 118–132; BP diastolic 73–86; PULSE 49–69; RESP 12–20; TEMP 36.6; O2SAT 96–100; BMI 24.0
--- OUTSIDE RECORDS SUMMARY | 2025-08-13 02:16 | XMS_ITS | Clinical Summary ---
Author Organization [facility] Address [address] [place] [address] Care Team Providers Care Tube Laser Operator Name Role Phone Unavailable Primary Care Provider Unavailabl e Social History Tobacco Use Types Packs/Day Years Used Date Smoking Tobacco: Never Assessed Sex and Gender Information Value Date Recorded Sex Assigned at Not on file Legal Sex Male 9:33 AM ORDER DESK CLERK Gender Identity Not on file Sexual [...]
--- OUTSIDE RECORDS SUMMARY | 2025-08-13 02:16 | XMS_ITS | Encounter Summary ---
Author Organization [facility] Address [address] [place] [address] Care Team Providers Care Purchasing Engineer Name Role Phone Moi Foster MD Primary Care Provider [phone] Encounter Details Date Type Department Care Team (Late st Contact Info) Description 12/20/2017 Lab Requisition [facility] Care DermPath Lab [address] [facility], [place] [address] Harvinder Pereira MD [address] [place] [address] Social History Tobacco Use Types Packs/Day Years Used Date Smoking Tobacco: Never Smokeless Tobacco: Never Alcohol Use Standard Drinks/Week Comments Yes 0 (1 standard drink = 0.6 oz pur e alcohol) Sex and Gender Information Value Date Recorded Sex Assigned at Not on file Legal Sex Male 5:54 PM CAT OPERATOR Gender Identity Not on file Sexual Orientation Not on file documented as of this encounter Plan of Treatment Not on file documented as of this encounter Procedures Procedure Name Priority Date/Time Associated Diagnosis Comments DERMATOPATHOLOGY Routine 12/19/2017 12:0 0 AM CDT documented in this encounter Results * DERMATOPATHOLOGY (12/19/2017 12:00 AM CDT) Case Report Dermatopathology Report Case: [id number] Authorizing Provider: Harvinder Pereira MD Collected: 12/19/2017 [...] of a curettage and desiccation biopsy measuring [id number]. The margin is inked green. The specimen [...] characteristic determined by the Dermatopathology Laboratory at [facility]. These tests need not be, and therefore are not, approved by the [place] Food and Drug Administration. The tests are used for clinical purposes. Billing Codes Specimen Charges Stain Charges 69964 1 11:24 AM CDT DERMATOPATHOLOGY LABORATORY Embedded Images 11:24 AM CDT DERMATOPATHOLOGY LABORATORY Pathology/Cytolog y TISSUE SPECIMEN FROM SKIN / Unknown 12/19/2017 12/20/2017 11:26 AM CDT Harvnider Pereira MD LAB - PATHOLOGY/CYTOLOGY ORD ERABLES Final Result DERMATOPATHOLOGY LABORATORY [facility] - Department of Dermatology [address] [facility], [address]th [place] [address], [facility] [phone] documented in this encounter Visit Diagnoses Not on filedocumented in this encounter Care Teams Purchasing Engineer Relationship Specialty Start Date End Date Moi Foster MD [address] [place] [address] PCP - General 02/01/16 documented as of this encounter
--- OUTSIDE RECORDS SUMMARY | 2025-08-13 02:16 | XMS_ITS | Clinical Summary ---
Author Organization [facility] Address [address] [place] [phone] Care Team Providers Care Bight Maker Name Role Phone Unavailable Primary Care Provider Unavailabl e Encounters Date Type Department Care Team Description 07/07/2025 External Device Data [facility] ABSTRACTION Provider, Abstract 07/07/2025 External Device Data [facility]STRACTION Provider, Abstract from Last 3 Months Social History Tobacco Use Types Packs/Day Years Used Date Smoking Tobacco: Never Assessed Sex and Gender Information Value Date Recorded Sex Assigned at Not on file Legal Sex Male 6:22 PM SPECIALTY FOODS COOK Gender Identity Not on file Sexual Orientation [...] patient's age to complete this topic Insurance [facility] BLUE ACCESS CHOICE
--- OUTSIDE RECORDS SUMMARY | 2025-08-13 02:16 | XMS_ITS | Encounter Summary ---
Author Organization [facility] Address [address] [place] [address] Care Team Providers Care Vp Marketing Name Role Phone Moi Foster MD Primary Care Provider [phone] Encounter Details Date Type Department Care Team (Late st Contact Info) Description 09/24/2019 Lab Requisition [facility] Care DermPath Lab [address] [facility], [place] [address] Harvinder Pereira MD [address] [place] [address] Social History Tobacco Use Types Packs/Day Years Used Date Smoking Tobacco: Never Smokeless Tobacco: Never Alcohol Use Standard Drinks/Week Comments Yes 0 (1 standard drink = 0.6 oz pur e alcohol) Sex and Gender Information Value Date Recorded Sex Assigned at Not on file Legal Sex Male 5:54 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 Gender Identity Not on file Sexual Orientation Not on file documented as of this encounter Plan of Treatment Not on file documented as of this encounter Procedures Procedure Name Priority Date/Time Associated Diagnosis Comments DERMATOPATHOLOGY Routine 09/23/2019 12:0 0 AM METAL FLOORING INSTALLER documented in this encounter Results * DERMATOPATHOLOGY (09/23/2019 12:00 AM METAL FLOORING INSTALLER) Case Report Dermatopathology Report Case: [id number] Authorizing Provider: Harvinder Pereira MD Collected: 09/23/2019 12:00 AM Ordering Location: [facility] DermPath Lab Received: 09/24/2019 01:12 PM Pathologist: Ryan Mckeon MD Specimen: Skin, right mid anteromedial calf 0 12:09 PM [facility] DERMATOPATHOLOGY LABORATORY Final Diagnosis Specimen A. SKIN, right mid anteromedial calf: BASAL CELL CARCINOMA, NODULAR TYPE (C44.712) 0 12:09 PM [facility] DERMATOPATHOLOGY LABORATORY at [address] METAL FLOORING INSTALLER Clinical History R/O BCC,SCC. 0 12:09 PM [facility] DERMATOPATHOLOGY LABORATORY Gross Description Specimen A: Received is one formalin filled container labeled with the patient's name and designated right mid anteromedial calf. The specimen consists of a shave biopsy measuring [id number]. Jar 0. 0 12:09 PM [facility] DERMATOPATHOLOGY LABORATORY Microscopic Description Specimen A. SKIN, right mid anteromedial calf: Within the dermis there are aggregates of basaloid cells with a high nuclear to cytoplasmic ratio and peripheral palisading. 0 12:09 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 DERMATOPATHOLOGY LABORATORY Disclaimer An external and internal positive and negative controls are appropriate for the histochemical, immunohistochemical and immunofluorescence stain(s) in this case (if any), except where stated explicitly. The performance characteristics of the stain(s) cited in this report were developed and its performance characteristic determined by the Dermatopathology Laboratory at [facility], directed by Dr. Hugo Mckeon. These tests need not be, and therefore are not, approved by the [place] Food and Drug Administration. The tests are used for clinical purposes. Billing Codes Specimen Charges Stain Charges 85454 1 0 12:09 PM [facility] DERMATOPATHOLOGY LABORATORY Embedded Images 0 12:09 PM [facility] DERMATOPATHOLOGY LABORATORY Pathology/Cytolog y TISSUE SPECIMEN FROM SKIN / Unknown 09/23/2019 09/24/2019 1:12 PM [facility] us Harvinder Pereira MD LAB - PATHOLOGY/CYTOLOGY ORD ERABLES Final Result DERMATOPATHOLOGY LABORATORY [facility] - Department of Dermatology [facility] [facility], 5th Floor Lab B [address] [phone] documented in this encounter Visit Diagnoses Not on filedocumented in this encounter Care Teams Vp Marketing Relationship Specialty Start Date End Date Moi Foster MD [address] [place] [address] PCP - General 02/01/16 documented as of this encounter
--- OUTSIDE RECORDS SUMMARY | 2025-08-13 02:16 | XMS_ITS | Encounter Summary ---
Author Organization [facility] Address [address] [place] [address] Care Team Providers Care Wall Worker Name Role Phone Moi Foster MD Primary Care Provider Encounter Details Date Type Department Care Team (Late st Contact Info) Description 07/01/2024 Lab Requisition [facility] - DermPath Lab [address] [facility] [place] [id number] Harvinder Pereira MD [address] [place] [address] Social History Tobacco Use Types Packs/Day Years Used Date Smoking Tobacco: Never Smokeless Tobacco: Never Alcohol Use Standard Drinks/Week Comments Yes 0 (1 standard drink = 0.6 oz pur e alcohol) Sex and Gender Information Value Date Recorded Sex Assigned at Not on file 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 Gender Identity Not on file Sexual Orientation Not on file documented as of this encounter Plan of Treatment Not on file documented as of this encounter Procedures Procedure Name Priority Date/Time Associated Diagnosis Comments DERMATOPATHOLOGY Routine 06/30/2024 12:0 0 AM CDT documented in this encounter Results * DERMATOPATHOLOGY (06/30/2024 12:00 AM CDT) Case Report Dermatopathology Report Case: [id number] Authorizing Provider: Harvinder Pereira MD Collected: 06/30/2024 12:00 AM Ordering Location: [facility] - Received: [...] of a curettage and desiccation biopsy measuring [id number] mm. Jar 0. 11:45 AM CDT DERMATOPATHOLOGY [...] characteristic determined by the Dermatopathology Laboratory at [facility], directed by Dr. Hugo Mckeon. These tests need not be, and therefore are not, approved by the [place] Food and Drug Administration. The tests are used for clinical purposes. Billing Codes Specimen Charges Stain Charges 40565 1 11:45 AM CDT DERMATOPATHOLOGY LABORATORY Embedded Images 11:45 AM CDT DERMATOPATHOLOGY LABORATORY Pathology/Cytolog y TISSUE SPECIMEN FROM SKIN / Unknown 06/30/2024 07/01/2024 4:19 PM CDT us Harvinder Pereira MD LAB - PATHOLOGY/CYTOLOGY ORD ERABLES Final Result DERMATOPATHOLOGY LABORATORY [facility] - Department of Dermatology [facility] [address] [place] [address], [address] [phone] documented in this encounter Visit Diagnoses Not on filedocumented in this encounter Care Teams Wall Worker Relationship Specialty Start Date End Date Moi Foster MD [address] [place] [address] PCP - General 02/01/16 documented as of this encounter
--- OUTSIDE RECORDS SUMMARY | 2025-08-13 02:16 | XMS_ITS | Clinical Summary ---
Author Organization [facility] Address [address] [place] [address] Care Team Providers Care Accounting Auditor Name Role Phone Moi Foster MD Primary Care Provider [phone] Source Comments [facility],non-owned Affiliates and Associated Physician Practices is amultiple site organization consisting of ambulatory clinics and hospital sitesin [place], [place], [place] and [place]. This disclosure is being madepursuant to the Care Everywhere program and may not contain all information available regarding this patient. Last updated 18.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 SELF PAY NO INSURANCE Member Subscriber Plan / Payer (Ef fective for All Dates) Name:Brett Chung Evert Member ID:Not on file Relation to Subscriber:Not on file Name:BRETT CHUNG Subscriber ID:Not on file (Home) Address: [address] [place] [address] Payer ID:Not on file Group ID:Not on file Type:Self Pay Address: [place], [place] Care Teams Accounting Auditor Relationship Specialty Start Date End Date Moi Foster MD [address] [place] [address] PCP - General 02/01/16
--- NOTE | 2025-08-13 11:09 | WPDANESEPPF ---
Anes - Initial Pre Proc Eval Procedure: Operation Date: 08/13/25 12:00 Proposed Procedures p Image Guided Nasal Endoscopy, Bilateral Maxillary Antrostomy, Bilateral Total Ethmoidectomy, Bilateral Sphenoidectomy, Bilateral Sub Mucosa Resection Inferior Turbinates Partial or Complete by Any Method, - Yung Carrion MD s Therapeutic Fracture of Bilateral Inferior Turbinates, Endoscopic Assisted Septoplasty - Yung Carrion MD Date/Time: 08/13/25 11:09 Surgeon: Yung Carrion MD Pre Op Diagnosis: chronic sinusitis, nasal congestion Patient Data Age: 59 Gender: M Height: 1.78 m Weight: 78 kg Allergies Allergy/AdvReac Type Severity Reaction Status Date / Time No Known Allergies Allergy Verified 08/04/25 14:25 Home Medications ?Medication ?Instructions ?Recorded ?Confirmed ?Type multivitamin 1 tablet PO .QD 09/20/22 08/04/25 History nortriptyline 10 mg capsule 10 mg PO QHS #30 caps 04/01/25 08/04/25 Rx amoxicillin 875 mg-potassium 1 tablet PO BID 5 days #10 tabs 08/11/25 Rx clavulanate 125 mg tablet zolpidem 5 mg tablet (Ambien) 5 mg PO .q hs #30 tabs 08/12/25 Rx Patient hx anesthesia problems: none Family hx anesthesia problems: none Results Review: All pre-operative results and documents have been reviewed as part of the pre-operative evaluation. [facility] Past Medical History Medical History Chronic headache Chronic nasal congestion Chronic maxillary sinusitis Sinus headache Laryngopharyngeal reflux (LPR) Posterior rhinorrhea Sinusitis GERD (gastroesophageal reflux disease) Dysphagia Insufficient sleep syndrome Neck pain Bradycardia Word finding difficulty BMI 24.0-24.9, adult Chest congestion Colon polyp Abnormal MRI, lumbar spine BMI 25.0-25.9,adult Back strain Dislocated elbow Surgical History Surgical History H/O cataract extraction History of vasectomy H/O inguinal hernia repair Family History Family History Grandparent Family history of premature coronary heart disease Hypertension Family history of malignant neoplasm Diabetes mellitus Family history of heart disease in male family member before age 55 Family history of cardiovascular disease Family history of coronary artery disease Father Hypertension Family history of coronary artery disease Family history of heart disease in male family member before age 55 Family history of cardiovascular disease Mother Arthritis Sibling No problems noted. 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 Informed Consent: The patient's anesthetic plan and its attendant risks and benefits were discussed with the patient/family/POA. Questions were solicited and answers provided to the satisfaction of the patient/family/POA.
--- NOTE | 2025-08-13 11:45 | WPDHPUPDATE1 ---
History and Physical Update Update Date/Time: 08/13/25 11:45 History and Physical has been reviewed, including an updated exam of the patient. There are NO changes in the patient's condition. Risks, benefits, and alternatives have been discussed and questions answered. Patient agrees to proceed with procedure.
--- NOTE | 2025-08-13 11:47 | WPDPN ---
Progress Note: A&P Assessment and Plan (1) Other chronic sinusitis: Code(s): J32.8 - Other chronic sinusitis Status: Acute Plan Patient with chronic sinusitis and deviated nasal septum patient is her for surgery PLan: ? Endoscopic septoplasty . Stereotactic guided endoscopic sinus surgery ? Image guided nasal endoscopy with maxillary antrostomy bilaterally. ? Image guided nasal endoscopy with ethmoidectomy, total (anterior and posterior) bilaterally. ? Image guided nasal endoscopy with sphenoidotomy bilaterally. . Bilateral submucous resection inferior turbinate,partial or complete, any method ? Therapeutic fracture of the inferior turbinates bilaterally. Subjective Date/time seen: 08/13/25 11:47 Interval history: Patient with chronic sinusitis Review of Systems Review of Systems: All systems reviewed & are unremarkable except as noted in HPI and below Constitutional: Constitutional: Reports as per HPI ENT: Reports as per HPI Respiratory: Respiratory: Reports as per HPI Gastrointestinal: Gastrointestinal: Reports as per HPI Exam Const: General: cooperative, healthy appearing, comfortable, no acute distress, well developed, alert, awake and Physically active Orientation/consciousness: oriented to person, oriented to place, oriented to time and patient oriented x3 HENMT: Head: normocephalic and atraumatic Ears: external ears normal and EAC's normal Face/Nose/Sinus: Normal external nose present and Normal nares present Mouth: Yes Normal oral and palatal mucosa present, Yes lip normal and Yes tongue normal Other: Deviated nasal septum Eyes: General: appearance normal, both eyes and all related structures Neck: Neck: normal visual inspection, full ROM and trachea midline Resp: Effort & Inspection: normal respiratory effort and able to speak in complete sentences Cardio: Rate: regular rate Neuro: General: oriented to person, oriented to place, oriented to time and patient oriented x3 Objective Data Meds/Results Medications: Active Medications Generic Name Dose Route Start Last Admin Trade Name Freq PRN Reason Stop Dose Admin Fentanyl Citrate 25 mcg 08/12/25 11:14 Fentanyl Citrate Inj (*Crx) 100 Mcg/2 Ml Vial IV PUSH Q2M PRN Pain Lactated Ringer's 1,000 mls @ 30 mls/hr 08/12/25 11:15 Lr - Lactated Ringers Iv IV CONT .Q24H MENDEL Lactated Ringer's 1,000 mls @ 30 mls/hr 08/12/25 11:15 Lr - Lactated Ringers Iv IV CONT .Q24H MENDEL Ondansetron HCl 4 mg 08/12/25 11:14 Ondansetron Inj 4 Mg/2 Ml Vial IV PUSH ONCE PRN Nausea Oxycodone HCl 5 mg 08/12/25 11:14 Oxycodone Hcl (*Crx) 5 Mg Tab Ir PO ONCE PRN Pain
--- NOTE | 2025-08-13 11:51 | P.OP_ITS ---
Procedure Note - Detailed Date of Procedure 08/13/25 Pre-op Diagnosis chronic sinusitis, nasal congestion Post-op Diagnosis Same Procedure Performed ? Endoscopic septoplasty . Stereotactic guided endoscopic sinus surgery ? Image guided nasal endoscopy with maxillary antrostomy bilaterally. ? Image guided nasal endoscopy with ethmoidectomy, total (anterior and posterior) bilaterally. ? Image guided nasal endoscopy with frontal sinuotomy bilaterally with balloon dilation . Bilateral submucous resection inferior turbinate,partial or complete, any method ? Therapeutic fracture of the inferior turbinates bilaterally. . Left chuck bullosa resection Surgeon Yung Carrion MD Anesthesia General Description of Procedure The patient was seen in the preoperative area, informed consent was checked and confirmed. The patient was taken to the operating room, sedated and placed under general anesthesia with an endotracheal tube . Eyes were taped and were prepped and draped in the usual sterile fashion. The nose was examined, and the left anterior septum was injected with 1% lidocaine with 1:100,000 epinephrine. [place] incision was made and a mucoperichondrial flap was elevated to expose the quadrangular cartilage and bony septum. Incision was then made anteriorly on the quadrangular cartilage to elevate the contralateral mucoperichondrial flap. The deviated quadrangular cartilage was excised with a Sanaz knife. At least 1 cm of dorsal and caudal strut of quadrangular was left in place. We resected the deviated bony septum with a King-Martinez and a pituitary forceps. After adequate resection of the posterior-inferior bony septum, the mucoperichondrial Flap was laid back in anatomic position. I proceeded to the endoscopic sinus procedure starting on the right side. The agger nasi area was injected with 1% lidocaine with 1:100,000 epinephrine. The body of the middle turbinate was injected with 1% lidocaine with 1:100,000 epinephrine. The middle turbinate was gently medialized and the uncinectomy was performed with a pediatric Hogan backbiter and the uncinectomy was completed with a shaver from the inferior-posterior attachment to the superior anterior attachment. The ethmoidectomy was performed by shaving the anterior ethmoid bulla and care was taken to protect the skull base and the lamina papyracea. Maxillary antrum was re-examined with a 30-degree scope. A ball probe was passed into the antrum and was further widened with a backbiter in the anterior- inferior aspect.right posterior ethmoidectomy was done through the inferio- medial quadrant of basal lamella ,posterior ethmoid cells were removed from anterior to posterior direction and from inferior to superior taking care to preserve skull base and lamina papyracea.then ,lateralization of the middle turbinate and shaving,opening of the posterior corridor and shaving the posterior part of the middle turbinate to widen the superior meatus and i proceeded to the left side : The agger nasi area was injected with 1% lidocaine with 1:100,000 epinephrine. The body of the middle turbinate was injected with 1% lidocaine with 1:100,000 epinephrine. The middle turbinate was gently medialized and the uncinectomy was performed with a pediatric Hogan backbiter and the uncinectomy was completed with a shaver from the inferior-posterior attachment to the superior anterior attachment. The ethmoidectomy was performed by shaving the anterior ethmoid bulla and care was taken to protect the skull base and the lamina papyracea. M axillary antrum was re-examined with a 30-degree scope. A ball probe was passed into the antrum and was further widened with a backbiter in the anterior- inferior aspect.left posterior ethmoidectomy was done through the inferio- medial quadrant of basal lamella ,posterior ethmoid cells were removed from anterior to posterior direction and from inferior to superior taking care to preserve skull base and lamina papyracea.then ,lateralization of the middle turbinate and shaving,opening of the posterior corridor and shaving the posterior part of the middle turbinate to widen the superior meatus The left? ?chuck bullosa was resected with a shaver. The lateral wall of the chuck bullosa was resected with care taken to protect its medial wall and middle turbinate attachment to the lateral nasal wall and the skull base. RIGHT FRONTAL SINUSOTOMY Agger Nasi cells on right were opened with the shaver and 30-degree scope. Frontal sinus ostium was identified with the navigated sinus balloon . Then the balloon was passed into the frontal sinus and the ostia was adequately dilated. Shaver was used to debride excess tissue to clear the frontal recess. LEFT FRONTAL SINUSOTOMY Agger Nasi cells on left were opened with the shaver and 30-degree scope. Frontal sinus ostium was identified with navigated sinus balloon . Then the balloon was passed into the frontal sinus and the ostia was adequately dilated. Shaver was used to debride excess tissue to clear the frontal recess. Left sphenoidotomy Left side sphenoidotomy was done by identifying the left sphenoid ostium ,the lower third of the superior turbinate was resected to expose the left sphenoid ostium,the ostium was enlarged inferiorly and laterally Right sphenoidotomy Right side sphenoidotomy was done by identifying the left sphenoid ostium ,the lower third of the superior turbinate was resected to expose the left sphenoid ostium,the ostium was enlarged inferiorly and laterally BILATERAL INFERIOR TURBINATE SUBMUCOUS REDUCTION We proceeded with submucosal inferior turbinate reduction, starting on the right side, a stab incision was made anterior mucosa of inferior turbinate. Submucosal pocket was created along the length of the inferior turbinate and the microdebrider blade 2mm thick was introduced anteriorly and into the whole submucosal pocket. Microdebrider was then used to remove the hypertrophied bony parts of anterior turbinate head and soft tissue with the outer layer intact. The residual inferior turbinate was then out fractured using Boies elevator. We proceeded to the left side. A stab incision was made on the anterior mucosa of inferior turbinate. Submucosal pocket was created along the length of the inferior turbinate and the microdebrider blade 2 mm thick was introduced anteriorly and into the whole submucosal pocket. Microdebrider was then used to remove the hypertrophied bony parts of anterior turbinate head and soft tissue with the outer layer intact. The residual inferior turbinate was then out fractured using Boies elevator. Pledgets were placed in the ethmoid cavity. ? Pledgets were removed from ethmoid cavities, PosiSep X BAM Hemostat Dressing sponges were placed in ethmoid cavities bilaterally and infiltrated with a mixture of kenalog and cefazolin. The nose was then suctioned clean and at this point the care of the patient was then transferred to the anesthesiologist where the patient emerged from general anesthesia without complication. Estimated Blood Loss 15 (ml) Drains No Packing Yes (absorbable packing ) Complications No immediate complications Condition Stable Disposition PACU [facility] Billing Surgery - Charge Forward: Surgery Billing
[2025-08-13] MEDS: TRANEXAMIC ACID 1,000MG/ISO100 1,000 MG/100 ML BAG 200 MG IVPB (12:14)
[2025-08-13] MEDS: ceFAZolin 1 GM in SODIUM CHLORIDE 0.9% IV 50 ML 100 ML IVPB (13:06)
[2025-08-13] MEDS: LIDO 1%/EPINEPHRINE 1:100,000 50 ML VIAL (13:07)
[2025-08-13] MEDS: TRIAMCINOLONE ACET INJ 40 MG/ML VIAL XX (13:09)
--- NOTE | 2025-08-13 16:25 | W.PM.PROC2 ---
Procedure Note - Detailed Date of Procedure 08/13/25 Pre-op Diagnosis chronic sinusitis, nasal congestion Post-op Diagnosis Same Procedure Performed ? Endoscopic septoplasty . Stereotactic guided endoscopic sinus surgery ? Image guided nasal endoscopy with maxillary antrostomy bilaterally. ? Image guided nasal endoscopy with ethmoidectomy, total (anterior and posterior) bilaterally. ? Image guided nasal endoscopy with frontal sinus balloon dilation bilateral . ? Image guided nasal endoscopy with sphenoidotomy left . ? Bilateral inferior turbinate reduction (intramural (submucosal) ablation of the inferior turbinate.) ? Therapeutic fracture of the inferior turbinates bilaterally. ? Image guided nasal endoscopy with chuck bullosa resection left Surgeon Yung Carrion MD Anesthesia General Description of Procedure The patient was seen in the preoperative area, informed consent was checked and confirmed. The patient was taken to the operating room, sedated and placed under general anesthesia with an endotracheal tube . Eyes were taped and were prepped and draped in the usual sterile fashion. The nose was examined, and the left anterior septum was injected with 1% lidocaine with 1:100,000 epinephrine. [place] incision was made and a mucoperichondrial flap was elevated to expose the quadrangular cartilage and bony septum. Incision was then made anteriorly on the quadrangular cartilage to elevate the contralateral mucoperichondrial flap. The deviated quadrangular cartilage was excised with a Sanaz knife. At least 1 cm of dorsal and caudal strut of quadrangular was left in place. We resected the deviated bony septum with a King-Martinez and a pituitary forceps. After adequate resection of the posterior-inferior bony septum, the mucoperichondrial Flap was laid back in anatomic position.04 vicryl was used to suture the incision I proceeded to the endoscopic sinus procedure starting on the right side. The agger nasi area was injected with 1% lidocaine with 1:100,000 epinephrine. The body of the middle turbinate was injected with 1% lidocaine with 1:100,000 epinephrine. The middle turbinate was gently medialized and the uncinectomy was performed with a pediatric Hogan backbiter and the uncinectomy was completed with a shaver from the inferior-posterior attachment to the superior anterior attachment. The ethmoidectomy was performed by shaving the anterior ethmoid bulla and care was taken to protect the skull base and the lamina papyracea. Maxillary antrum was re-examined with a 30-degree scope. A ball probe was passed into the antrum and was further widened with a backbiter in the anterior-inferior aspect.right posterior ethmoidectomy was done through the inferio-medial quadrant of basal lamella ,posterior ethmoid cells were removed from anterior to posterior direction and from inferior to superior taking care to preserve skull base and lamina papyracea.then ,lateralization of the middle turbinate and shaving,opening of the posterior corridor and shaving the posterior part of the middle turbinate to widen the superior meatus and i proceeded to the left side : The agger nasi area was injected with 1% lidocaine with 1:100,000 epinephrine. The body of the middle turbinate was injected with 1% lidocaine with 1:100,000 epinephrine. The middle turbinate was gently medialized and the uncinectomy was performed with a pediatric Hogan backbiter and the uncinectomy was completed with a shaver from the inferior-posterior attachment to the superior anterior attachment. The ethmoidectomy was performed by shaving the anterior ethmoid bulla and care was taken to protect the skull base and the lamina papyracea. Maxillary antrum was re-examined with a 30-degree scope. A ball probe was passed into the antrum and was further widened with a backbiter in the anterior-inferior aspect.left posterior ethmoidectomy was done through the inferio-medial quadrant of basal lamella ,posterior ethmoid cells were removed from anterior to posterior direction and from inferior to superior taking care to preserve skull base and lamina papyracea.then ,lateralization of the middle turbinate and shaving,opening of the posterior corridor and shaving the posterior part of the middle turbinate to widen the superior meatus The left? ?chuck bullosa was resected with a shaver. The lateral wall of the chuck bullosa was resected with care taken to protect its medial wall and middle turbinate attachment to the lateral nasal wall and the skull base. Agger Nasi cells on right were opened with the shaver and 30-degree scope. Frontal sinus ostium was identified with the navigated sinus balloon . Then the balloon was passed into the frontal sinus and the ostia was adequately dilated. Shaver was used to debride excess tissue to clear the frontal recess. Agger Nasi cells on left were opened with the shaver and 30-degree scope. Frontal sinus ostium was identified with navigated sinus balloon . Then the balloon was passed into the frontal sinus and the ostia was adequately dilated. Shaver was used to debride excess tissue to clear the frontal recess. Left side sphenoidotomy was done by identifying the left sphenoid ostium ,the lower third of the superior turbinate was resected to expose the left sphenoid ostium,the ostium was enlarged inferiorly and laterally We proceeded with submucosal inferior turbinate reduction, starting on the right side, a stab incision was made anterior mucosa of inferior turbinate. Submucosal pocket was created along the length of the inferior turbinate .Celon radiofrequency probe was introduced through the incision and was used to Shrink the hypertrophied soft tissue part with the outer layer intact . The residual inferior turbinate was then out fractured using Boies elevator. We proceeded to the left side. A stab incision was made on the anterior mucosa of inferior turbinate. Submucosal pocket was created along the length of the inferior turbinate .Celon radiofrequency probe was introduced through the incision and was used to Shrink the hypertrophied soft tissue part with the outer layer intact The residual inferior turbinate was then out fractured using Boies elevator. Pledgets were removed from ethmoid cavities, PosiSep X BAM Hemostat Dressing sponges were placed in ethmoid cavities bilaterally and infiltrated with a mixture of kenalog and cefazolin. The nose was then suctioned clean and at this point the care of the patient was then transferred to the anesthesiologist where the patient emerged from general anesthesia without complication. Estimated Blood Loss 30 (ml) Drains No Packing Yes (absorbable nasal packing) Complications No immediate complications Condition Stable Disposition PACU [facility] Billing Surgery - Charge Forward: Surgery Billing
[2025-08-13] MEDS: LACTATED RINGERS 1,000 ML 30 ML IV CONT ×2 (16:44)
[2025-08-13] MEDS: methylPREDNISolone ACETATE 40 MG/ML VIAL 20 MG IM (17:01)
--- NOTE | 2025-08-16 18:34 | PM.IMHP2 ---
H&P: HPI History of Present Illness Date/Time: 08/16/25 18:34 Chief Complaint: Chronic nasal obstruction and chronic sinusitis Narrative: Patient has history of nasal congestion and chronic sinusitis is here for drug going sinus surgery Review of Systems Review of Systems: All systems reviewed & are unremarkable except as noted in HPI and below Constitutional: Constitutional: Reports as per HPI ENT: Reports as per HPI Respiratory: Respiratory: Reports as per HPI Gastrointestinal: Gastrointestinal: Reports as per HPI [facility] Past Medical History Medical History (Reviewed 08/16/25 @ 08:07 by Aisha Mcgovern [facility]) Other chronic sinusitis Chronic headache Chronic nasal congestion Chronic maxillary sinusitis Sinus headache Laryngopharyngeal reflux (LPR) Posterior rhinorrhea Sinusitis GERD (gastroesophageal reflux disease) Dysphagia Insufficient sleep syndrome Neck pain Bradycardia Word finding difficulty BMI 24.0-24.9, adult Chest congestion Colon polyp Abnormal MRI, lumbar spine BMI 25.0-25.9,adult Back strain Dislocated elbow Surgical History Surgical History (Reviewed 08/16/25 @ 08:07 by Aisha Mcgovern [facility]) H/O cataract extraction History of vasectomy H/O inguinal hernia repair Family History Family History (Reviewed 08/16/25 @ 08:07 by Aisha Mcgovern [facility]) Grandparent Family history of premature coronary heart disease Hypertension Family history of malignant neoplasm Diabetes mellitus Family history of heart disease in male family member before age 55 Family history of cardiovascular disease Family history of coronary artery disease Father Hypertension Family history of coronary artery disease Family history of heart disease in male family member before age 55 Family history of cardiovascular disease Mother Arthritis Sibling No problems noted. Social History Social History (Reviewed 08/16/25 @ 08:07 by Aisha Mcgovern [facility]) Smoking status: Never smoker Second hand tobacco smoke exposure: No Alcohol intake: current Alcohol use details: 2 PER MONTH Substance use: never Substance use type: does not use Lack of Transportation: No Lack of Food: Never True Current Housing: I Have Housing Concerned About Future Housing: No Difficulty Paying Gas/Electric Bills: No Difficulty Paying for Meds: No Currently Unemployed: No Education: Master's Degree or Higher Difficulty w/ Childcare or Family Care: No Living arrangements: with family Occupation/Education: occupation 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 Gender identity (if verbalized by the patient): Male Spiritual care concerns: No Meds Home Medications and Allergies Home Medications ?Medication ?Instructions ?Recorded ?Confirmed ?Type multivitamin 1 tablet PO .QD 09/20/22 08/16/25 History nortriptyline 10 mg capsule 10 mg PO QHS #30 caps 04/01/25 08/16/25 Rx zolpidem 5 mg tablet (Ambien) 5 mg PO .q hs #30 tabs 08/12/25 08/16/25 Rx acetaminophen 300 mg-codeine 15 mg 1 tablet PO Q8H PRN pain (scale 08/13/25 08/16/25 Rx tablet score 7-10) #15 tabs amoxicillin 875 mg-potassium 1 tablet PO Q12H 10 days #20 tabs 08/13/25 08/16/25 Rx clavulanate 125 mg tablet Allergies Allergy/AdvReac Type Severity Reaction Status Date / Time No Known Allergies Allergy Verified 08/16/25 08:07 Exam Const: General: cooperative, healthy appearing, comfortable, no acute distress, well developed, alert, awake and Physically active Orientation/consciousness: oriented to person, oriented to place, oriented to time and patient oriented x3 HENMT: Head: normocephalic and atraumatic Ears: external ears normal and EAC's normal Face/Nose/Sinus: Normal external nose present and Normal nares present Mouth: Yes Normal oral and palatal mucosa present, Yes lip normal and Yes tongue normal Other: Deviated nasal septum Eyes: General: appearance normal, both eyes and all related structures Neck: Neck: normal visual inspection, full ROM and trachea midline Resp: Effort & Inspection: normal respiratory effort and able to speak in complete sentences Cardio: Rate: regular rate Neuro: General: oriented to person, oriented to place, oriented to time and patient oriented x3 Assessment and Plan Assessment and plan (1) Chronic nasal congestion: Code(s): R09.81 - Nasal congestion Status: Acute (2) Other chronic sinusitis: Code(s): J32.8 - Other chronic sinusitis Status: Acute Plan 59-year-old male with deviated nasal septum hypertrophy of nasal turbinates and chronic sinusitis. 1. Endoscopic sinus surgery septoplasty bilateral for turbinate reduction will be performed
== END 2025-08-13 18:10 | disposition home or self-care (01) ==
PROVIDERS: PCP Family Medicine; Visit Provider Otolaryngology Otolaryngology/Facial Plastic Surgery
PROC: (CPT 31256; principal; 2025-08-13 12:00)
PROC: (CPT 30520; 2025-08-13 12:00)
DX: J32.8 Other chronic sinusitis (principal); R09.81 Nasal congestion; J34.3 Hypertrophy of nasal turbinates
CPT/HCPCS: 31256; 31296; 31257; 61782; 31240; 30520; 30140; A9270; C1726; J0330; J0690; J1010; J1100; J2003; J2004; J2250; J2405; J2704; J3010; J3290; J3301; J7030; J7050; J7120